=== PATIENT | female | born 1945 | race Caucasian/White ===

== ENCOUNTER → 2020-05-29 | Outpatient (REF) | payer MEDICARE, MEDICAID | LOC: M SFHCLERA 13:17 | PROVIDERS: ATTEND Nurse Practitioner Family | DX: N28.9 Disorder of kidney and ureter, unspecified (principal) ==

== ENCOUNTER → 2020-05-31 | Outpatient (CLI) | payer MEDICARE, MEDICAID ==
[2020-05-31 15:28] LABS: ALBUMIN 3.5 GM/DL (3.2-5.2); BLOOD UREA NITROGEN 14 MG/DL (7-18); CALCIUM LEVEL 8.7 MG/DL (8.8-10.2); CARBON DIOXIDE LEVEL 27 MEQ/L (21-32); CHLORIDE LEVEL 110 MEQ/L (98-107); CREATININE FOR GFR 0.88 MG/DL (0.55-1.30); GLOMERULAR FILTRATION RATE > 60.0 (>39); GLUCOSE, FASTING 98 MG/DL (70-100); PHOSPHORUS LEVEL 3.3 MG/DL (2.5-4.9); POTASSIUM SERUM 3.6 MEQ/L (3.5-5.1); SODIUM LEVEL 145 MEQ/L (136-145)
== END ==
LOC: M LAB 14:25
PROVIDERS: ATTEND Nurse Practitioner Family
DX: N28.9 Disorder of kidney and ureter, unspecified (principal)

== ENCOUNTER → 2021-01-30 | Outpatient (CLI) | payer MEDICARE, MEDICAID ==
[~2021-01-30] MED LIST: ASPI81TA26 PO; ATOR40TA75 PO; CARB25TA18 PO; ELIQ5TAB PO; FAMO20TA PO; FLON1SPR; GABA600T4 PO; KEPP1TAB PO; METO25TA4 PO; OMEP1CAP73 PO; VIMP200T PO; VITA-243 PO; VITA500T73 PO
== END ==
LOC: M LABSMTC 10:49
PROVIDERS: ATTEND Anesthesiology
DX: Z01.812 Encounter for preprocedural laboratory examination (principal); Z20.822 Contact with and (suspected) exposure to COVID-19

== ENCOUNTER 2021-02-04 09:56 | Day surgery (SDC) | payer MEDICARE, MEDICAID ==
[~2021-02-04] VITALS: Ht 144.8 cm; Wt 76.7 kg
[~2021-02-04 09:56] MED LIST changes: +NS 1,000 ML IV ONE
--- OUTSIDE RECORDS SUMMARY | 2021-02-04 10:03 | CCD ---
Author Author [facility] Organization [facility] Address Unknown Phone Unavailable Care Team Providers Care Campaign Assistant Name Role Phone Eri Fany Unavailable PROBLEMS Type Condition ICD9-CM Code [id number] Code Onset Dates Condition S tatus W/U Status Risk SNOMED Code Notes Problem Parkinson disease G20 Active confirmed 49 981010 Problem History of coronary artery stent placement Z95.5 Active confirmed 970617941 Problem Gastroesophageal reflux dise ase, unspecified whether esophagitis present K21.9 Active confirmed 619419663 Problem History of left knee replacement Z96.652 Active confirmed 548267093 Problem Insomnia, unspecified type G47.00 Active confirmed 644110092 Problem Dementia with behavioral disturbance, unspecifie d dementia type F03.91 Active confirmed 2291964016284 ALLERGIES Allergen (clinical drug ingredient) Drug/Non Drug Allergy do cumented on EMR Reaction Allergy Type Onset Date Status sulfamethoxazole / trimethoprim Bactrim([facility] Code:[address]-39) Unknown Drug Allergy Active Penicillin (For Allergies Use Only) Unknown Drug Allerg y Active ENCOUNTERS from 1945 to 2021-01-23 Encounter Location Date Provider Diagnosis [facility] [address] [facility] [phone] [place] [address] Jan, Fany Hwang Gastroesophageal reflux dise ase, unspecified whether esophagitis present K21.9 IMMUNIZATIONS Vaccine Route Administration Date Status Influenza 18 yrs & older Flublok IM Intramuscular Mar 05, 2020 Administered SOCIAL HISTORY Tobacco Use: Social History Observation Description Date Details (start date - stop date) Never Smoker Sex Assigned At : Social History Observation Description Sex Assigned At Unknown Audit Question Answer Notes Total Score: 0 Interpretation: Alcohol Education Drug and Alcohol Question Answer Notes Total Score: 0 Interpretation: No problems reported Tobacco Use: Question Answer Notes Are you a: never smoker REASON FOR REFERRAL No Information VITAL SIGNS No information MEDICATIONS Medication SIG (Take, Route, Frequency, Duration) Notes Start Da te End Date Status DULoxetine HCl 60 MG 1 capsule Orally Once a day for 30 Days Active Carbidopa-Levodopa 25-100 MG 1 tablet Orally three times daily for 90 days Active Vitamin B-1 500 MG 1 tab Orally once daily Active Fluticasone Propionate 50 MCG/ACT 1 spray in each nost ril Nasally Once a day for 30 day(s) Oct, Active Vitamin C 500 MG 1 cap Orally Daily Active Aspirin 81 81 MG 1 tablet Orally Once a day for 90 days Active Keppra 500 MG 3 tablets Orally every 12 hrs for 30 days Active Metoprolol Tartrate 25 MG 3 tablets Orally Twice a day for 30 days Active Atorvastatin Calcium 40 MG 1 tablet Orally Once a day for 30 Days Active Clindamycin HCl 150 MG 1 cap Orally every 8 hrs for 10 day(s) May, Not-Taking Vimpat 200 MG 1 tablet Orally Twice a day for 30 days Active Eliquis 5 MG 1 tab Orally Daily for 30 days Active Famotidine 20 MG 1 tablet as directed Orally Twice a day for 30 day(s) Oct, Active Gabapentin 600 MG 1 tablet Orally Once a day for 30 days Active Dextromethorphan-quiNIDine 20-10 MG 2 capsule Orally Daily for 30 Day s Active Zolpidem Tartrate 5 MG 1 tablet at bedtime Orally Once a day for 30 d ays Active PROCEDURES No Information RESULTS No Results REASON FOR VISIT Famotidine refill MEDICAL (GENERAL) HISTORY Type Description Date Medical History Hypertension Medical History non-epileptic and epileptic seizures Medical History dementia Medical History parkinsons Medical History heart palpitations Medical History stroke-2016 Surgical History cardiac stent Surgical History left knee replacement Surgical History right arm X 2 Surgical History X 3 Surgical History hysterectomy Hospitalization History surgeries Hospitalization History seizures 2017 Goals Section No Information Health Concerns No Information MEDICAL EQUIPMENT No Information MENTAL STATUS No Information FUNCTIONAL STATUS No Information ASSESSMENTS Encounter Date Diagnosis Assessment Notes Treatment Notes Treatm ent Clinical Notes Jan, Gastroesophageal reflux dise ase, unspecified whether esophagitis present (ICD-10 - K21.9) PLAN OF TREATMENT Medication Medication Name Sig Start Date Stop Date Keppra 500 MG 3 tablets Orally every 12 hrs for 30 days Gabapentin 600 MG 1 tablet Orally Once a day for 30 days Famotidine 20 MG 1 tablet as directed Orally Twice a day for 30 day(s) Oct, Fluticasone Propionate 50 MCG/ACT 1 spray in each nost ril Nasally Once a day for 30 day(s) Oct, Insurance Providers Payer Name Payer Address Payer Phone Insured Name Patient Relati onship to Insured Coverage Start Date Coverage End Date MEDICAID ab&jb properties and services[employer]er [address] [facility] [address] SURENDRA MOORE MEDICARE Part A and B [address] [facility] [address] SURENDRA MOORE self
--- OUTSIDE RECORDS SUMMARY | 2021-02-04 10:04 | CCD ---
Author Author [facility] Organization [facility] Address Unknown Phone Unavailable Care Team Providers Care Banquet Bartender Name Role Phone Eri Fany Unavailable PROBLEMS Type Condition ICD9-CM Code [id number] Code Onset Dates Condition S tatus W/U Status Risk SNOMED Code Notes Problem Parkinson disease G20 Active confirmed 49 801302 Problem History of coronary artery stent placement Z95.5 Active confirmed 676091075 Problem Gastroesophageal reflux dise ase, unspecified whether esophagitis present K21.9 Active confirmed 518059733 Problem History of left knee replacement Z96.652 Active confirmed 918858417 Problem Insomnia, unspecified type G47.00 Active confirmed 426310618 Problem Dementia with behavioral disturbance, unspecifie d dementia type F03.91 Active confirmed 1212710099849 ALLERGIES Allergen (clinical drug ingredient) Drug/Non Drug Allergy do cumented on EMR Reaction Allergy Type Onset Date Status sulfamethoxazole / trimethoprim Bactrim([facility] Code:[address]-70) Unknown Drug Allergy Active Penicillin (For Allergies Use Only) Unknown Drug Allerg y Active ENCOUNTERS from 1945 to 2021-01-21 Encounter Location Date Provider Diagnosis [facility] [address] [facility] [phone] [place] [address] Jan, Fany Hwang Gastroesophageal reflux dise ase, [...] three times daily for 90 days Active Eliquis 5 MG 1 tab Orally Daily for 30 days Active Fluticasone Propionate 50 MCG/ACT 1 spray in each nost ril Nasally Once a day for 30 day(s) Oct, Active Vitamin C 500 MG 1 cap Orally Daily Active Aspirin 81 81 MG 1 tablet Orally Once a day for 90 days Active Keppra 500 MG 3 tablets Orally every 12 hrs for 30 days Active Atorvastatin Calcium 40 MG 1 tablet Orally Once a day for 30 Days Active Vitamin B-1 500 MG 1 tab Orally once daily Active Famotidine 20 MG 1 tablet as directed Orally Twice a day for 30 day(s) Oct, Active Vimpat 200 MG 1 tablet Orally Twice a day for 30 days Active Dextromethorphan-quiNIDine 20-10 MG 2 capsule Orally Daily for 30 Day s Active Metoprolol Tartrate 25 MG 3 tablets Orally Twice a day for 30 days Active Gabapentin 600 MG 1 tablet Orally Once a day for 30 days Active Clindamycin HCl 150 MG 1 cap Orally every 8 hrs for 10 day(s) May, Not-Taking Zolpidem Tartrate 5 MG 1 tablet at bedtime Orally Once a day for 30 d ays Active PROCEDURES No Information RESULTS No Results REASON FOR VISIT Refill MEDICAL (GENERAL) HISTORY Type Description Date Medical [...] Coverage Start Date Coverage End Date MEDICAID MCA[employer]Meet[employer] [address] [facility] [address] SURENDRA MOORE MEDICARE Part A and B [address] [facility] [address] SURENDRA MOORE self
--- OUTSIDE RECORDS SUMMARY | 2021-02-04 10:04 | CCD ---
Author Author [facility] Organization [facility] Address Unknown Phone Unavailable Care Team Providers Care Validation Specialist Name Role Phone Perla Hwangell Unavailable PROBLEMS Type Condition ICD9-CM Code CLO02-HE Code Onset Dates Condition S tatus W/U Status Risk SNOMED Code Notes Problem Parkinson disease G20 Active confirmed 49 331941 Problem History of coronary artery stent placement Z95.5 Active confirmed 148723535 Problem Gastroesophageal reflux dise ase, unspecified whether esophagitis present K21.9 Active confirmed 478579918 Problem History of left knee replacement Z96.652 Active confirmed 814251233 Problem Insomnia, unspecified type G47.00 Active confirmed 404592951 Problem Dementia with behavioral disturbance, unspecifie d dementia type F03.91 Active confirmed 2636172067708 ALLERGIES Allergen (clinical drug ingredient) Drug/Non Drug Allergy do cumented on EMR Reaction Allergy Type Onset Date Status sulfamethoxazole / trimethoprim Bactrim([facility] Code:[address]-40) Unknown Drug Allergy Active Penicillin (For Allergies Use Only) Unknown Drug Allerg y Active ENCOUNTERS from 1945 to 2020-11-26 Encounter Location Date Provider Diagnosis [facility] [address] [facility] [phone] [place] [address] Nov, Fany Eri Seizures R56.9 IMMUNIZATIONS Vaccine Route Administration Date Status Influenza [...] tab Orally Daily for 30 days Active Aspirin 81 81 MG 1 tablet Orally Once a day for 90 days Active Famotidine 20 MG 1 tablet as directed Orally Twice a day for 30 day(s) Oct, Active Vitamin C 500 MG 1 cap Orally Daily Active Keppra 500 MG 3 tablets Orally [...] Information RESULTS No Results REASON FOR VISIT Keppra refill MEDICAL (GENERAL) HISTORY Type Description Date [...] Notes Treatment Notes Treatm ent Clinical Notes Nov, Seizures (ICD-10 - R56.9) PLAN OF TREATMENT Medication Medication Name Sig Start Date Stop Date Keppra 500 MG 3 tablets Orally every 12 hrs for 30 days Gabapentin 600 MG 1 tablet Orally Once a day for 30 days Fluticasone Propionate 50 MCG/ACT 1 spray in each nost ril Nasally Once a day for 30 day(s) Oct, Famotidine 20 MG 1 tablet as directed Orally Twice a day for 30 day(s) Oct, Insurance Providers Payer Name Payer Address Payer Phone Insured Name Patient Relati onship to Insured Coverage Start Date Coverage End Date MEDICARE Part A and B [address] [facility] [phone] SURENDRA MOORE MEDICAID [employer] [address] [facility] [address] SURENDRA MOORE self
--- OUTSIDE RECORDS SUMMARY | 2021-02-04 10:04 | CCD | Continuity of Care Document ---
Author Author Estela Ortiz Roz Organization Unknown Address Unknown Phone [phone] Care Team Providers Care Manganese Heater Name Role Phone Donn [facility]INE [facility] [phone] Social History Type Date Description Comments Sex Unknown Results Test Acquired Date Facility Test Result H/L Range Note Laboratory test finding 01/17/[address] [address] [phone] CBC W/Automated Diff (SEE NOTE) 1 Basic Metabolic Panel 01/17/[address] [address] [phone] Basic Metabolic Pane (SEE NOTE) 2 Sodium 141 mEq/L 134 - 153 Potassium 4.5 mEq/L 3.6 - 5.0 Chloride 111 mEq/L High 98 - 107 Co2 19 mEq/L Low 22 - 30 Glucose 126 mg/dL High 70 - 99 BUN 8 mg/dL 7 - 21 Creatinine 0.7 mg/dL 0.7 - 1.5 BUN/Creat 11 8 - 27 Calcium 8.6 mg/dL 8.4 - 10.2 Anion Gap 11.0 mmol/L 8.0 - 16.0 Age 75 yrs Afr Amer GFR >60 Non-Aa GFR >60 mL/min 3 CBC W/Automated Diff 01/16/[address] [address] [phone] CBC W/Automated Diff (SEE NOTE) 4 WBC 5.4 10^3/uL 4.2 - 11.0 RBC 4.20 10^6/uL 4.20 - 5.40 Hemoglobin 13.7 g/dL 12.0 - 16.0 Hematocrit 41.3 % 37.0 - 47.0 MCV 98.3 fL 81.0 - 101 MCH 32.6 pg 27.0 - 34.0 MCHC 33.2 g/dL 31.0 - 36.0 RDW 12.5 % 11.5 - 14.5 Platelets 144 10^3/uL Low 150 - 450 MPV 11.7 fL High 7.4 - 10.4 Neut 63.8 % 37.0 - 80.0 Lymph 23.3 % Low 25.0 - 40.0 [place] 7.8 % 3.0 - 8.0 Eos 4.3 % 0.0 - 7.0 Baso 0.6 % 0.0 - 2.5 %Ig 0.2 % High 0.0 - 0.0 %NRBC 0.0 % 0.0 - 0.0 #Neut 3.42 10^3/uL 2.00 - 6.90 #Lymph 1.25 10^3/uL 0.60 - 3.40 #[place] 0.42 10^3/uL 0.00 - 0.90 #Eos 0.23 10^3/uL 0.00 - 0.70 #Baso 0.03 10^3/uL 0.00 - 0.20 #Ig 0.01 10^3/uL 0.00 - 0.10 #NRBC 0.00 10^3/uL 0.00 - 0.00 Manual Diff NOT INDICATED RBC Morph NOT INDICATED Comprehensive Metabolic Panel 01/16/2021 [facility] [address] [place] [address] [phone] Comprehensive Metabo (SEE NOTE) 5 Sodium 142 mEq/L 134 - 153 Potassium 3.9 mEq/L 3.6 - 5.0 Chloride 110 mEq/L High 98 - 107 Co2 19 mEq/L Low 22 - 30 Glucose 108 mg/dL High 70 - 99 BUN 11 mg/dL 7 - 21 Creatinine 0.7 mg/dL 0.7 - 1.5 BUN/Creat 16 8 - 27 Total Protein 5.9 g/dL Low 6.3 - 8.2 Albumin 4.0 g/dL 3.9 - 5.0 Globulin 1.9 GM/DL Low 2.4 - 3.2 A/G Ratio 2.1 High 0.8 - 2.0 Calcium 9.0 mg/dL 8.4 - 10.2 Total Bili <0.7 mg/dL 0.2 - 1.3 Alkaline Phos 90 U/L 38 - 126 Sgot/Ast 11 U/L 5 - 40 SGPT/Alt <5 U/L Low 7 - 56 Anion Gap 13.0 mmol/L 8.0 - 16.0 Age 75 yrs Non-Aa GFR >60 mL/min Afr Amer GFR >60 6 1 COMPLETE BLOOD COUNT [WB] WBC 4.4___ 10^3/uL (L=4.2 H=11.0 )] [RB] RBC 3.97__ L 10^6/uL (L=4.20 H=5.40 )] [HG] HEMOGLOBIN 12.9___ g/dL (L=12.0 H=16.0 )] [HC] HEMATOCRIT 39.5___ % (L=37.0 H=47.0 )] [MV] MCV 99.5___ fL (L=81.0 H=101 )] [MH] MCH 32.5___ pg (L=27.0 H=34.0 )] [CC] MCHC 32.7___ g/dL (L=31.0 H=36.0 )] [RD] RDW 12.3___ % (L=11.5 H=14.5 )] [PL] PLATELETS 95 L 10^3/uL (L=150 H=450 )] [MP] MPV 12.2___ H fL (L=7.4 H=10.4 )] [N%] NEUT 56.1___ % (L=37.0 H=80.0 )] [L%] LYMPH 29.5___ % (L=25.0 H=40.0 )] [M%] MONO 8.2___ H % (L=3.0 H=8.0 )] [E%] EOS 5.5___ % (L=0.0 H=7.0 )] [B%] BASO 0.5___ % (L=0.0 H=2.5 )] [I%] %IG 0.2___ H % (L=0.0 H=0.0 )] [n%] %NRBC 0.0___ % (L=0.0 H=0.0 )] [N#] #NEUT 2.46__ 10^3/uL (L=2.00 H=6.90 )] [L#] #LYMPH 1.29__ 10^3/uL (L=0.60 H=3.40 )] [M#] #MONO 0.36__ 10^3/uL (L=0.00 H=0.90 )] [E#] #EOS 0.24__ 10^3/uL (L=0.00 H=0.70 )] [B#] #BASO 0.02__ 10^3/uL (L=0.00 H=0.20 )] [I#] #IG 0.01__ 10^3/uL (L=0.00 H=0.10 )] [n#] #NRBC 0.00__ 10^3/uL (L=0.00 H=0.00 )] { MANUAL DIFF ___SEE_BELOW [ SEGS 55 % (L=37 H=80 )] [ BAND % (L=0 H=5 )] [ %LYMPH 36 % (L=25 H=40 )] [ %MONO 7 % (L=3 H=8 )] [ %EOS 2 % (L=0 H=7 )] [ %BASO % (L=0 H=2 )] [ METAMYELOCYTE % ] [ MYELOCYTE % ] [ PROMYELOCYTE % ] [ BLASTS % ] [ PAUL LYM % ] [ NRBC % ] { RBC MORPH __NOT_INDICATED___ 2 BASIC METABOLIC PANEL 3 Male GFR Interprentation 20-49 yrs >60 mL/min Normal 50-59 yrs >56 mL/min Normal 60-69 yrs >49 mL/min Normal 70-79yrs >42 mL/min Normal 80 and above >35 mL/min Normal Female GFR Interpretation 20-39 yrs >60 mL/min Normal 40-49 yrs >58 mL/min Normal 50-59 yrs >51 mL/min Normal 60-69 yrs >45 mL/min Normal 70-79 yrs >39 mL/min Normal 80 and above >32 mL/min Normal 4 COMPLETE BLOOD COUNT 5 COMPREHENSIVE METABOLIC PANE L 6 Male GFR Interprentation 20-49 yrs >60 mL/min Normal 50-59 yrs >56 mL/min Normal 60-69 yrs >49 mL/min Normal 70-79yrs >42 mL/min Normal 80 and above >35 mL/min Normal Female GFR Interpretation 20-39 yrs >60 mL/min Normal 40-49 yrs >58 mL/min Normal 50-59 yrs >51 mL/min Normal 60-69 yrs >45 mL/min Normal 70-79 yrs >39 mL/min Normal 80 and above >32 mL/min Normal Procedures Date Code Description Status 01/15/2021 83476 Echocardiogram, Complete Complet ed Assessments Date Code Description Provider 01/15/2021 I34.0 Nonrheumatic mitral (valve) insu fficiency [facility]
--- OUTSIDE RECORDS SUMMARY | 2021-02-04 10:04 | CCD | Continuity of Care Document ---
Author Author Estela Ortiz Roz Organization Unknown Address Unknown Phone [phone] Care Team Providers Care College Dean Name Role Phone Donn [facility] [phone] Social History Type Date Description Comments Sex Unknown Results Test Acquired Date Facility Test Result H/L Range Note Laboratory test finding 01/17/[address] [address] [phone] CBC W/Automated Diff (SEE NOTE) 1 Basic Metabolic Panel 01/17/[address] [address] [phone] Basic Metabolic Pane (SEE NOTE) 2 Sodium [...] >60 mL/min 3 CBC W/Automated Diff 01/16/[address] [address] [phone] CBC W/Automated Diff (SEE NOTE) 4 WBC [...] Lymph 23.3 % Low 25.0 - 40.0 [place] 7.8 % 3.0 - 8.0 Eos 4.3 % 0.0 - 7.0 Baso 0.6 % 0.0 - 2.5 %Ig 0.2 % High 0.0 - 0.0 %NRBC 0.0 % 0.0 - 0.0 #Neut 3.42 10^3/uL 2.00 - 6.90 #Lymph 1.25 10^3/uL 0.60 - 3.40 #[place] 0.42 10^3/uL 0.00 - 0.90 #Eos 0.23 10^3/uL 0.00 - 0.70 #Baso 0.03 10^3/uL 0.00 - 0.20 #Ig 0.01 10^3/uL 0.00 - 0.10 #NRBC 0.00 10^3/uL 0.00 - 0.00 Manual Diff NOT INDICATED RBC Morph NOT INDICATED Comprehensive Metabolic Panel 01/16/2021 [facility] [address] [place] [address] [phone] Comprehensive Metabo (SEE NOTE) 5 Sodium 142 [...] Normal Procedures Date Code Description Status 01/15/2021 [address] Echocardiogram, Complete Complet ed Assessments Date Code Description Provider 01/15/2021 I34.0 Nonrheumatic mitral (valve) insu fficiency [facility]
--- OUTSIDE RECORDS SUMMARY | 2021-02-04 10:04 | CCD ---
Author Author [facility] Organization [facility] Address Unknown Phone Unavailable Care Team Providers Care Clinical Engineer Name Role Phone Eri, Fany Unavailable PROBLEMS Type Condition ICD9-CM Code YYM49-LU Code Onset Dates Condition S tatus W/U Status Risk SNOMED Code Notes Problem Parkinson disease G20 Active confirmed 49 855174 Problem History of coronary artery stent placement Z95.5 Active confirmed 406597608 Problem Gastroesophageal reflux dise ase, unspecified whether esophagitis present K21.9 Active confirmed 729350212 Problem History of left knee replacement Z96.652 Active confirmed 199589328 Problem Insomnia, unspecified type G47.00 Active confirmed 302791711 Problem Dementia with behavioral disturbance, unspecifie d dementia type F03.91 Active confirmed 4025308492838 ALLERGIES Allergen (clinical drug ingredient) Drug/Non Drug Allergy do cumented on EMR Reaction Allergy Type Onset Date Status sulfamethoxazole / trimethoprim Bactrim([facility] Code:[address]-16) Unknown Drug Allergy Active Penicillin (For Allergies Use Only) Unknown Drug Allerg y Active ENCOUNTERS from 1945 to 2020-11-12 Encounter Location Date Provider Diagnosis [facility] [address] [facility] [phone] [place] [address] Oct, Fany Hwang IMMUNIZATIONS Vaccine Route Administration Date Status Influenza [...] a day for 30 day(s) Oct, Active Metoprolol Tartrate 25 MG 3 tablets Orally Twice a day for 30 days Active Atorvastatin Calcium 40 MG 1 tablet Orally Once a day for 30 Days Active Clindamycin HCl 150 MG 1 cap Orally every 8 hrs for 10 day(s) May, Not-Taking Keppra 500 MG 3 tablets Orally every 12 hrs for 30 days Active Eliquis 5 MG 1 tab Orally Daily for 30 days Active Vimpat 200 MG 1 tablet Orally [...] Information RESULTS No Results REASON FOR VISIT Gabapentin refill MEDICAL (GENERAL) HISTORY Type Description Date [...] No Information FUNCTIONAL STATUS No Information ASSESSMENTS No Information PLAN OF TREATMENT Medication Medication Name Sig Start Date Stop Date Famotidine 20 MG 1 tablet as directed Orally Twice a day for 30 day(s) Oct, Gabapentin 600 MG 1 tablet Orally Once a day for 30 days Keppra 500 MG 3 tablets Orally every 12 hrs for 30 days Fluticasone Propionate 50 MCG/ACT 1 spray in each nost ril Nasally Once a day for 30 day(s) Oct, Insurance Providers Payer Name Payer Address Payer Phone Insured Name Patient Relati onship to Insured Coverage Start Date Coverage End Date MEDICAID [employer] [address] [facility] [address] SURENDRA MOORE MEDICARE Part A and B [address] [facility] [address] SURENDRA MOORE self
--- OUTSIDE RECORDS SUMMARY | 2021-02-04 10:04 | CCD | Continuity of Care Document ---
Author Author Estela HORTA Organization Unknown Address [address] [place] [address] Phone [phone] Care Team Providers Care Registered Nurse Cardiac Name Role Phone Fany Hwang M.D. AUTM [phone] Problems Active Problems Provider Date Seizure Juan Mejia M.D. Onset: 12/12/2020 Dissociative convulsions Juan Mejia M.D. Onset: 2020 Parkinson's disease Juan Mejia M.D. Onset: 12/12/2020 Ischemic stroke Juan Mejia M.D. Onset: 12/12/2020 Dementia Juan Mejia M.D. Onset: 12/12/2020 Social History Type Date Description Comments Sex Unknown Tobacco Use Start: Unknown End: Unknown Patient is a former smoker Allergies, Adverse Reactions, Alerts Active Allergies Criticality Reaction | Severity Comments Date ALL Cillin's Unable to assess criticality 12/12/2020 Medications Active Medications SIG Qnty Indications Ordering Provide r Date Diazepam 5mg Tablets take 1 tab 30-60 minutes prior to mri. POURER [id number] 1chavo fung M.D. 12/26/2020 Keppra 500mg Tablets T sukhjinder 3 tabs PO bid 180chavo Mejia M.D. 12/12/2020 Vimpat 200mg Tablets 1 tab by mouth bid. 60tamoises Mejia M.D. 12/12/2020 Carbidopa-Levodopa 25-100mg Tablet s take 1.5 tablet three times a day 5 hrs apart. 135tamoises Mejia M.D. 12/12/2020 Immunizations Description No Information Available Vital Signs Date Vital Result Comment 12/12/2020 8:43am Respiratory Rate 12 /min Height 57 inches 4'9" Weight 172.00 lb BMI (Body Mass Index) 37.2 kg/m2 [place] Body Weight 100 lb Results Description No Information Available Procedures Date Code Description Status 12/27/2020 64682 MRI Brain W/O Contrast Completed 12/27/2020 21919 MRI Brain W/O Contrast Completed 12/27/2020 23203 Magnetic Resonance Angiography N mary W/O Contrast Materials Completed 12/27/2020 20373 Magnetic Resonance Angiography N mary W/O Contrast Materials Completed 12/27/2020 63938 Magnetic Resonance Angiogtaphy H ead W/O Contrast Material(S) Completed 12/27/2020 73115 Magnetic Resonance Angiogtaphy H ead W/O Contrast Material(S) Completed 12/12/2020 79012 Office/Outpatient New High MDM 6 0-74 Minutes Completed Medical Devices Description No Information Available Encounters Type Date Location Provider Dx Diagnosis Office Visit 12/12/2020 8:00a Main office - [place] Juan fugn M.D. 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 12/27/2020 I63.9 Cerebral infarction, unspecified MRI 12/27/2020 R42 Dizziness and giddiness Kris Regan M.D. 12/27/2020 R42 Dizziness and giddiness MRI 12/12/2020 I63.9 Cerebral infarction, unspecified Juan Mejia M.D. 12/12/2020 R42 Dizziness and giddiness Juan perdomo M.D. 12/12/2020 G20 Parkinson's disease Juan fung M.D. 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 12/12/2020 R26.81 Unsteadiness on feet Juan oneal M.D. Plan of Treatment Future Appointment(s):* 03/25/2021 2:15 pm - Juan Mejia M.D. at [facility] * 01/15/2021 8:15 am - EEG at [facility] * 01/31/2021 10:15 am - Ans/VS at [facility] Functional Status Description No Information Available Mental Status Description No Information Available Referrals Description No Information Available
--- OUTSIDE RECORDS SUMMARY | 2021-02-04 10:04 | CCD | Continuity of Care Document ---
Author Estela Meneses M.D. Organization Unknown Address [address] [place] [address] Phone [phone] Care Team Providers Care Monorail Charger Operator Name Role Phone Fany Hwang M.D. AUTM [phone] Problems Active Problems Provider Date Seizure Juan [...] SIG Qnty Indications Ordering Provide r Date Keppra 500mg Tablets T sukhjinder 3 tabs PO bid 180tamoises Mejia M.D. 12/12/2020 Vimpat 200mg Tablets 1 tab by mouth bid. 60tamoises Mejia M.D. 12/12/2020 Carbidopa-Levodopa 25-100mg Tablet s take 1.5 tablet three times a day 5 hrs apart. 135chavo Mejia M.D. 12/12/2020 Immunizations Description No Information Available Vital Signs Date Vital Result Comment 12/12/2020 8:43am Respiratory Rate 12 /min Height 57 inches 4'9" Weight 172.00 lb BMI (Body Mass Index) 37.2 kg/m2 [place] Body Weight 100 lb Results Description No Information Available Procedures Description No Information Available Medical Devices Description No Information Available Encounters Description No Information Available Assessments Date Code Description Provider 12/12/2020 I63.9 Cerebral infarction, unspecified Juan Mejia M.D. 12/12/2020 R42 Dizziness and giddiness Juan perdomo M.D. 12/12/2020 G20 Parkinson's disease Juan fung M.D. 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 12/12/2020 R26.81 Unsteadiness on feet Juan oneal M.D. Plan of Treatment No Information Available Functional Status Description No Information Available Mental Status Description No Information Available Referrals Description No Information Available
--- OUTSIDE RECORDS SUMMARY | 2021-02-04 10:04 | CCD | Continuity of Care Document ---
Author Author Estela OCONNOR PA-C Organization Unknown Address [address] [place] [address], [address] [place] [address] Phone [phone] Care Team Providers Care Sample Finisher Name Role Phone Fany Hwang M.D. AUTM [phone] Ny Reddy AUTM [phone] Problems Active Problems Provider Date Essential hypertension CARLA Rodríguez Onset: Social History Type Date Description Comments Sex Unknown ETOH Use Denies alcohol use Tobacco Use Start: Unknown Non Smoker Allergies, Adverse Reactions, Alerts Active Allergies Criticality Reaction | Severity Comments Date Penicillins Unable to assess criticality 12/26/2020 Medications Active Medications SIG Qnty Indications Ordering Provide r Date Omeprazole 20mg Capsules DR take one capsule by mouth twice a day 60caps K21.9 Satish Ann MD Aspirin Adult Low Dose 81mg Tablet s DR 1 tab by mouth daily Unknown Atorvastatin Calcium 40mg Tablets 1 by mouth every day Unknown Carbidopa-Levodopa 25-100mg Tablet s 1 1/2 tab tid Unknown Eliquis 5mg Tablets 1 tab by mouth daily Unknown Gabapentin 600mg Tablets 1 tab by mouth daily Unknown Keppra 500mg Tablets 3 tab s twice daily Unknown Metoprolol Succinate ER 25mg Tablets ER 24HR 3 tabs twice daily Unknown 0 Vitamin B-12 500mcg Tablets one tablet by mouth daily. Unknown Vitamin C 500mg Tablets Daily Unknown Famotidine 20mg Tablets take 1 tab by mouth twice daily Unknown Vimpat 200mg Tablets bid Unknown Immunizations Description No Information Available Vital Signs Date Vital Result Comment 12/26/2020 2:05pm BP Systolic 134 mmHg BP Diastolic 82 mmHg Height 57 inches 4'9" Weight 172.00 lb BMI (Body Mass Index) 37.2 kg/m2 [place] Body Weight 100 lb Weight 78.019 kg BSA (Body Surface Area) 1.69 m2 Results Description No Information Available Procedures Date Code Description Status 12/26/2020 27514 Office/Outpatient New Moderate M DM 45-59 Minutes Completed Medical Devices Description No Information Available Encounters Type Date Location Provider Dx Diagnosis Office Visit 12/26/2020 2:00p [facility] ctice CARLA Rodríguez K21.9 Gastro-esophageal reflux dis ease without esophagitis R10.13 Epigastric pain Assessments Date Code Description Provider 12/26/2020 K21.9 Gastro-esophageal reflux disease without esophagitis CARLA Rodríguez 12/26/2020 R10.13 Epigastric pain CARLA Brock Plan of Treatment Future Appointment(s):* 02/12/2021 2:05 pm - David Choudhury M.D. at [facility] * 02/04/2021 11:55 am - David Choudhury M.D. at [facility] 12/26/2020 - CARLA Rodríguez* K21.9 Gastro-esophageal reflux disease without esophagitis * R10.13 Epigastric pain * * New Medication:* Omeprazole 20 mg * New Orders:* Endoscopy, Ordered: 12/26/20 * Comments:* Offerd a colonoscopy to the patient, as she has never had one. She has declined to have the colonoscopy completed. She verbalized understanding of the risks associated with not having the colonoscopy completed, including the risk of missed abnormalities. She states that she is going to speak with her PCP about possible stool testing for colo-rectal cancer screening. Will arrange for upper endoscopy. Reviewed risks and benefits of the procedure, as well as other options, with the patient. Prep for this procedure was discussed with patient. A letter will be sent to [facility] requesting permission for her to hold Eliquis prior to the procedure. Patient verbalized understanding of all of the above and is in agreement to proceed. Patient will seek medical attention for any acute changes. Will monitor. * Follow up:* As scheduled, sooner if needed. Functional Status Description No Information Available Mental Status Description No Information Available Referrals Refer to Reason for Referral Status Appt Date David Choudhury M.D. GERD Scheduled 12/26 [facility]-[address], [place] [address] [phone]
--- OUTSIDE RECORDS SUMMARY | 2021-02-04 10:04 | CCD ---
Author Author [facility] Organization [facility] Address Unknown Phone Unavailable Care Team Providers Care Astrobiologist Name Role Phone Eri Fany Unavailable PROBLEMS Type Condition ICD9-CM Code [id number] Code Onset Dates Condition S tatus W/U Status Risk SNOMED Code Notes Problem Parkinson disease G20 Active confirmed 49 864063 Problem History of coronary artery stent placement Z95.5 Active confirmed 461359386 Problem Gastroesophageal reflux dise ase, unspecified whether esophagitis present K21.9 Active confirmed 985128485 Problem History of left knee replacement Z96.652 Active confirmed 012800122 Problem Insomnia, unspecified type G47.00 Active confirmed 328724230 Problem Dementia with behavioral disturbance, unspecifie d dementia type F03.91 Active confirmed [id number] ALLERGIES Allergen (clinical drug ingredient) Drug/Non Drug Allergy do cumented on EMR Reaction Allergy Type Onset Date Status sulfamethoxazole / trimethoprim Bactrim([facility] Code:[address]-54) Unknown Drug Allergy Active Penicillin (For Allergies Use Only) Unknown Drug Allerg y Active ENCOUNTERS from 1945 to 2020-12-26 Encounter Location Date Provider Diagnosis [facility] [address] [facility] [phone] [place] [address] Dec, Fany Hwang Gastroesophageal reflux dise ase, unspecified [...] Notes Start Da te End Date Status Famotidine 20 MG 1 tablet as directed Orally Twice a day for 30 day(s) Oct, Active DULoxetine HCl 60 MG 1 capsule Orally [...] a day for 30 d ays Active Eliquis 5 MG 1 tab Orally Daily for 30 days Active Vimpat 200 MG 1 tablet Orally Twice a day for 30 days Active Gabapentin 600 MG 1 tablet Orally Once a day for 30 days Active Dextromethorphan-quiNIDine 20-10 MG 2 capsule Orally Daily for 30 Day s Active Carbidopa-Levodopa 25-100 MG 1 tablet Orally three times daily for 90 days Active PROCEDURES No Information RESULTS No Results [...] Notes Treatment Notes Treatm ent Clinical Notes Dec, Gastroesophageal reflux dise ase, unspecified whether esophagitis [...] Coverage Start Date Coverage End Date MEDICAID [employer] [address] [facility] [id number] SURENDRA MOORE MEDICARE Part A and B [address] [facility] [address] SURENDRA MOORE self
--- OUTSIDE RECORDS SUMMARY | 2021-02-04 10:04 | CCD | Continuity of Care Document ---
Author Author Estela ZAVALA M.D. Organization Unknown Address [address] [place] [address] Phone [phone] Care Team Providers Care Research And Development Technician Name Role Phone Fany Hwang M.D. AUTM [phone] Problems Active Problems Provider Date Seizure Juan Zavala M.D. Onset: 12/12/2020 Dissociative convulsions Juan Zavala M.D. Onset: 2020 Parkinson's disease Juan Zavala M.D. Onset: 12/12/2020 Ischemic stroke Juan Zavala M.D. Onset: 12/12/2020 Dementia Juan Zavala M.D. Onset: 12/12/2020 Social History Type Date Description Comments Sex Unknown Tobacco Use Start: Unknown End: Unknown Patient is a former smoker Allergies, Adverse Reactions, Alerts Active Allergies Criticality Reaction | Severity Comments Date ALL Cillin's Unable to assess criticality 12/12/2020 Medications Active Medications SIG Qnty Indications Ordering Provide r Date Keppra 500mg Tablets T sukhjinder 3 tabs PO bid 180tamoises Zavala M.D. 12/12/2020 Vimpat 200mg Tablets 1 tab by mouth bid. 60tabs Juan Zavala M.D. 12/12/2020 Carbidopa-Levodopa 25-100mg Tablet s take 1.5 tablet three times a day 5 hrs apart. 135tamoises Zavala M.D. 12/12/2020 Immunizations Description No Information Available Vital Signs Date Vital Result Comment 12/12/2020 8:43am Respiratory Rate 12 /min Height 57 inches 4'9" Weight 172.00 lb BMI (Body Mass Index) 37.2 kg/m2 [place] Body Weight 100 lb Results Description No Information Available Procedures Date Code Description Status 12/12/2020 57597 Office/Outpatient New High MDM 6 0-74 Minutes Completed Medical Devices Description No Information Available Encounters Type Date Location Provider Dx Diagnosis Office Visit 12/12/2020 8:00a [facility] Juan fung M.D. I63.9 Cerebral infarction, unspecified R42 Dizziness and giddiness G20 Parkinson's disease F01.51 Vascular dementia with behav ioral disturbance F44.5 Conversion disorder with sei zures or convulsions R26.81 Unsteadiness on feet Assessments Date Code Description Provider 12/12/2020 I63.9 Cerebral infarction, unspecified Juan Zavala M.D. 12/12/2020 R42 Dizziness and giddiness Juan perdomo M.D. 12/12/2020 G20 Parkinson's disease Juan fung M.D. 12/12/2020 F01.51 Vascular dementia with behaviora l disturbance Juan Zavala M.D. 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 12/12/2020 R26.81 Unsteadiness on feet Juan oneal M.D. Plan of Treatment Future Appointment(s):* 03/25/2021 2:15 pm - Juan Zavala M.D. at [facility] * 01/15/2021 8:15 am - EEG at [facility] * 01/31/2021 10:15 am - Ans/VS at [facility] Functional Status Description No Information Available Mental Status Description No Information Available Referrals Description No Information Available
--- OUTSIDE RECORDS SUMMARY | 2021-02-04 10:04 | CCD | Continuity of Care Document ---
Author Author Estela HORTA Organization Unknown Address [address] [place] [address] Phone [phone] Care Team Providers Care Web Architect Name Role Phone Fany Hwang M.D. AUTM [phone] Problems Active Problems Provider Date Seizure Juan [...] 1 tab 30-60 minutes prior to mri. CREDIT ADMINISTRATOR [id number] 1chavo fung M.D. 12/26/2020 Keppra 500mg Tablets [...] lb BMI (Body Mass Index) 37.2 kg/m2 [place] Body Weight 100 lb Results Description No Information Available Procedures Date Code Description Status 12/12/2020 25494 Office/Outpatient New High MDM 6 0-74 Minutes Completed Medical Devices Description No Information Available Encounters Type Date Location Provider Dx Diagnosis Office Visit 12/12/2020 8:00a [facility] Juan fung M.D. I63.9 Cerebral infarction, [...] 2:15 pm - Juan Mejia M.D. at [facility] * 01/15/2021 8:15 am - EEG at [facility] * 01/31/2021 10:15 am - Ans/VS at [facility] Functional Status Description No Information Available Mental Status Description No Information Available Referrals Description No Information Available
--- OUTSIDE RECORDS SUMMARY | 2021-02-04 10:04 | CCD | Continuity of Care Document ---
Author Author Estela OCONNOR PA-C Organization Unknown Address [address] [place] [address], [address] [place] [address] Phone [phone] Care Team Providers Care Deposit Refund Clerk Name Role Phone Fany Hwang M.D. AUTM [phone] Problems Active Problems Provider Date Essential hypertension [...] mouth twice a day 60caps K21.9 Satish nAn MD Aspirin Adult Low Dose 81mg Tablet [...] lb BMI (Body Mass Index) 37.2 kg/m2 [place] Body Weight 100 lb Weight 78.019 kg BSA (Body Surface Area) 1.69 m2 Results Description No Information Available Procedures Description No Information Available Medical Devices Description No Information Available Encounters Description No Information Available Assessments Date Code Description Provider 12/26/2020 K21.9 Gastro-esophageal reflux disease without esophagitis CARLA Rodríguez 12/26/2020 R10.13 Epigastric pain CARLA Brock Plan of Treatment 12/26/2020 - CARLA Rodríguez* K21.9 Gastro-esophageal reflux disease without esophagitis * R10.13 Epigastric pain * * New Medication:* Omeprazole 20 mg * New Orders:* Endoscopy, Ordered: 12/26/20 * Comments:* Will arrange for upper endoscopy. Reviewed risks and benefits of the procedure, as well as other options, with the patient. Prep for this procedure was discussed with patient. A letter will be sent to [facility] requesting permission for her to hold Eliquis prior to the procedure. Patient verbalized understanding of all of the above and is in agreement to proceed. Patient will seek medical attention for any acute changes. Will monitor. //Offered colo but declined. She will talk with PCP about stool testing. * Follow up:* As scheduled, sooner if needed. Functional Status Description No Information Available Mental Status Description No Information Available Referrals Refer to Reason for Referral Status Appt Date David Choudhury M.D. GERD Scheduled 12/26 [facility] [address], [address] [place] [address] [phone]
--- OUTSIDE RECORDS SUMMARY | 2021-02-04 10:04 | CCD ---
Author Author [facility] Organization [facility] Address Unknown Phone Unavailable Care Team Providers Care Information Systems Project Manager Name Role Phone Eri, Fany Unavailable PROBLEMS Type Condition ICD9-CM Code [id number] Code Onset Dates Condition S tatus W/U Status Risk SNOMED Code Notes Problem Parkinson disease G20 Active confirmed 49 247933 Problem History of coronary artery stent placement Z95.5 Active confirmed 377168893 Problem Gastroesophageal reflux dise ase, unspecified whether esophagitis present K21.9 Active confirmed 548115966 Problem History of left knee replacement Z96.652 Active confirmed 451112866 Problem Insomnia, unspecified type G47.00 Active confirmed 417902539 Problem Dementia with behavioral disturbance, unspecifie d dementia type F03.91 Active confirmed 8782322364611 ALLERGIES Allergen (clinical drug ingredient) Drug/Non Drug Allergy do cumented on EMR Reaction Allergy Type Onset Date Status sulfamethoxazole / trimethoprim Bactrim([facility] Code:[address]-68) Unknown Drug Allergy Active Penicillin (For Allergies Use Only) Unknown Drug Allerg y Active ENCOUNTERS from 1945 to 2021-01-14 Encounter Location Date Provider Diagnosis [address] [phone] [place] [address] Dec, Fany Hwang IMMUNIZATIONS Vaccine Route Administration Date [...] Information RESULTS No Results REASON FOR VISIT dizziness x 1 week MEDICAL (GENERAL) HISTORY Type Description Date Medical [...] Part A and B [address] [facility] [address] SURENDRA MOORE MEDICAID [employer] [address] [facility] [address] SURENDRA MOORE self
--- OUTSIDE RECORDS SUMMARY | 2021-02-04 10:04 | CCD | Continuity of Care Document ---
Author Author Estela SHINE M.D. P. C. Organization Unknown Address [address] [place] [address] Phone [phone] Care Team Providers Care Parts Finisher Name Role Phone HESHAM DIAMOND M[facility] [phone] Social History Type Date Description Comments Sex Unknown Procedures Date Code Description Status 01/15/2021 31441 Echocardiogram, Complete Complet ed Assessments Date Code Description Provider 01/15/2021 I34.0 Nonrheumatic mitral (valve) insu fficiency Hesham iDamond M.D.,P.C.
--- OUTSIDE RECORDS SUMMARY | 2021-02-04 10:05 | CCD ---
Author Author [facility] Organization [facility] Address Unknown Phone Unavailable Care Team Providers Care Tool Builder Name Role Phone NO, PCP Unavailable Unavailable Charlebois, A Gianna RPA C Unavailable Unavailable Charlebois, A Gianna RPA C Unavailable Unavailable Charlebois, A Gianna RPA C Unavailable Unavailable Charlebois, A Gianna RPA C Unavailable Unavailable Charlebois, A Gianna RPA C Unavailable Unavailable Charlebois, A Gianna RPA C Unavailable Unavailable Charlebois, A Gianna RPA C Unavailable Unavailable Charlebois, A Gianna RPA C Unavailable Unavailable Charlebois, A Gianna RPA C Unavailable Unavailable Charlebois, A Gianna RPA C Unavailable Unavailable Charlebois, A Gianna RPA C Unavailable Unavailable Charlebois, A Gianna RPA C Unavailable Unavailable Charlebois, A Gianna RPA C Unavailable Unavailable Charlebois, A Gianna RPA C Unavailable Unavailable Charlebois, A Gianna RPA C Unavailable Unavailable Charlebois, A Gianna RPA C Unavailable Unavailable Charlebois, A Gianna RPA C Unavailable Unavailable Charlebois, A Gianna RPA C Unavailable Unavailable Charlebois, A Gianna RPA C Unavailable Unavailable Charlebois, A Gianna RPA C Unavailable Unavailable Charlebois, A Gianna RPA C Unavailable Unavailable Charlebois, A Gianna RPA C Unavailable Unavailable Charlebois, A Gianna RPA C Unavailable Unavailable Charlebois, A Gianna RPA C Unavailable Unavailable Charlebois, A Gianna RPA C Unavailable Unavailable Charlebois, A Gianna RPA C Unavailable Unavailable Charlebois, A Gianna RPA C Unavailable Unavailable Charlebois, A Gianna RPA C Unavailable Unavailable Charlebois, A Gianna RPA C Unavailable Unavailable Charlebois, A Gianna RPA C Unavailable Unavailable Charlebois, A Gianna RPA C Unavailable Unavailable Charlebois, A Gianna RPA C Unavailable Unavailable Charlebois, A Gianna RPA C Unavailable Unavailable Dada Loyola MD Unavailable Unavailable Dada Loyola MD Unavailable Unavailable Dada Loyola MD Unavailable Unavailable Dada Loyola MD Unavailable Unavailable Dada Loyola MD Unavailable Unavailable Dada Loyola MD Unavailable Unavailable Rosy Hwang MD Unavailable Unavailable Rosy Hwang MD Unavailable Unavailable Rosy Hwang MD Unavailable Unavailable Rosy Hwang MD Unavailable Unavailable Rosy Hwang MD Unavailable Unavailable Rosy Hwang MD Unavailable Unavailable Rosy Hwang MD Unavailable Unavailable Rosy Hwang MD Unavailable Unavailable Rosy Hwang MD Unavailable Unavailable Rosy Hwang MD Unavailable Unavailable Rosy Hwang MD Unavailable Unavailable Rosy Hwang MD Unavailable Unavailable Rosy Hwang MD Unavailable Unavailable Rosy Hwang MD Unavailable Unavailable Rosy Hwang MD Unavailable Unavailable Rosy Hwang MD Unavailable Unavailable Rosy Hwang MD Unavailable Unavailable Rosy Hwang MD Unavailable Unavailable Rosy Hwang MD Unavailable Unavailable Rosy Hwang MD Unavailable Unavailable Rosy Hwang MD Unavailable Unavailable Rosy Hwang MD Unavailable Unavailable Rosy Hwang MD Unavailable Unavailable Rosy Hwang MD Unavailable Unavailable Rosy Hwang MD Unavailable Unavailable Rosy Hwang MD Unavailable Unavailable Rosy Hwang MD Unavailable Unavailable Rosy Hwang MD Unavailable Unavailable Rosy Hwang MD Unavailable Unavailable Rosy Hwang MD Unavailable Unavailable Rosy Hwang MD Unavailable Unavailable Rosy Hwang MD Unavailable Unavailable Rosy Hwang MD Unavailable Unavailable Rosy Hwang MD Unavailable Unavailable Rosy Hwang MD Unavailable Unavailable Rosy Hwang MD Unavailable Unavailable Rosy Hwang MD Unavailable Unavailable Rosy Hwang MD Unavailable Unavailable Rosy Hwang MD Unavailable Unavailable Rosy Hwang MD Unavailable Unavailable Rosy Hwang MD Unavailable Unavailable Rosy Hwang MD Unavailable Unavailable Rosy Hwang MD Unavailable Unavailable Rosy Hwang MD Unavailable Unavailable Rosy Hwang MD Unavailable Unavailable Rosy Hwang MD Unavailable Unavailable Rosy Hwang MD Unavailable Unavailable Rosy Hwang MD Unavailable Unavailable Rosy Hwang MD Unavailable Unavailable Rosy Hwang MD Unavailable Unavailable Rosy Hwang MD Unavailable Unavailable Rosy Hwang MD Unavailable Unavailable Rosy Hwang MD Unavailable Unavailable Rosy Hwang MD Unavailable Unavailable Rosy Hwang MD Unavailable Unavailable Rosy Hwang MD Unavailable Unavailable Rosy Hwang MD Unavailable Unavailable Rosy Hwang MD Unavailable Unavailable Rosy Hwang MD Unavailable Unavailable Rosy Hwang MD Unavailable Unavailable Rosy Hwang MD Unavailable Unavailable Rosy Hwang MD Unavailable Unavailable Rosy Hwang MD Unavailable Unavailable Rosy Hwang MD Unavailable Unavailable Rosy Hwang MD Unavailable Unavailable Rosy Hwang MD Unavailable Unavailable Rosy Hwang MD Unavailable Unavailable Rosy Hwang MD Unavailable Unavailable [place], V YUMIKO PA-C Unavailable Unavailable [place], V YUMIKO PA-C Unavailable Unavailable Maureen, V YUMIKO PA-C Unavailable Unavailable [place], V YUMIKO PA-C Unavailable Unavailable [place], V YUMIKO PA-C Unavailable Unavailable Maureen, V YUMIKO PA-C Unavailable Unavailable [place], V YUMIKO PA-C Unavailable Unavailable Maureen, V YUMIKO PA-C Unavailable Unavailable [place], V YUMIKO PA-C Unavailable Unavailable Maureen, V YUMIKO PA-C Unavailable Unavailable Maureen, V YUMIKO PA-C Unavailable Unavailable Maureen, V YUMIKO PA-C Unavailable Unavailable [place], V YUMIKO PA-C Unavailable Unavailable [place], V YUMIKO PA-C Unavailable Unavailable Alex Mejia MD Unavailable Unavailable Alex Mejia MD Unavailable Unavailable Alex Mejia MD Unavailable Unavailable Alex Mejia MD Unavailable Unavailable Alex Mejia MD Unavailable Unavailable Alex Mejia MD Unavailable Unavailable Alex Mejia MD Unavailable Unavailable Alex Mejia MD Unavailable Unavailable Alex Mejia MD Unavailable Unavailable Alex Mejia MD Unavailable Unavailable Alex Mejia MD Unavailable Unavailable Alex Mejia MD Unavailable Unavailable Alex Mejia MD Unavailable Unavailable Alex Mejia MD Unavailable Unavailable Alex Mejia MD Unavailable Unavailable Alex Mejia MD Unavailable Unavailable Alex Mejia MD Unavailable Unavailable Alex Mejia MD Unavailable Unavailable Alex Mejia MD Unavailable Unavailable Alex Mejia MD Unavailable Unavailable Alex Mejia MD Unavailable Unavailable Alex Mejia MD Unavailable Unavailable Alex Mejia MD Unavailable Unavailable Alex Mejia MD Unavailable Unavailable Alex Mejia MD Unavailable Unavailable Alex Mejia MD Unavailable Unavailable Alex Mejia MD Unavailable Unavailable Alex Mejia MD Unavailable Unavailable Alex Mejia MD Unavailable Unavailable Alex Mejia MD Unavailable Unavailable Alex Mejia MD Unavailable Unavailable Alex Mejia MD Unavailable Unavailable Alex Mejia MD Unavailable Unavailable Alex Mejia MD Unavailable Unavailable Alex Mejia MD Unavailable Unavailable Alex Mejia MD Unavailable Unavailable Alex Mejia MD Unavailable Unavailable Alex Mejia MD Unavailable Unavailable Alex Mejia MD Unavailable Unavailable Alex Mejia MD Unavailable Unavailable Alex Mejia MD Unavailable Unavailable Alex Mejia MD Unavailable Unavailable Alex Mejia MD Unavailable Unavailable Alex Mejia MD Unavailable Unavailable Alex Mejia MD Unavailable Unavailable Alex Mejia MD Unavailable Unavailable Alex Mejia MD Unavailable Unavailable Alex Mejia MD Unavailable Unavailable Alex Mejia MD Unavailable Unavailable Alex Mejia MD Unavailable Unavailable Alex Mejia MD Unavailable Unavailable Alex Mejia MD Unavailable Unavailable Alex Mejia MD Unavailable Unavailable Alex Mejia MD Unavailable Unavailable Alex Mejia MD Unavailable Unavailable Alex Mejia MD Unavailable Unavailable Alex Mejia MD Unavailable Unavailable Alex Mejia MD Unavailable Unavailable Alex Mejia MD Unavailable Unavailable Alex Mejia MD Unavailable Unavailable Alex Mejia MD Unavailable Unavailable Alex Mejia MD Unavailable Unavailable Alex Mejia MD Unavailable Unavailable Alex Mejia MD Unavailable Unavailable Alex Mejia MD Unavailable Unavailable Alex Mejia MD Unavailable Unavailable Alex Mejia MD Unavailable Unavailable Alex Mejia MD Unavailable Unavailable Alex Mejia MD Unavailable Unavailable Alex Mejia MD Unavailable Unavailable Alex Mejia MD Unavailable Unavailable Alex Mejai MD Unavailable Unavailable Alex Mejia MD Unavailable Unavailable Alex Mejia MD Unavailable Unavailable Alex Mejia MD Unavailable Unavailable Alex Mejia MD Unavailable Unavailable Alex Mejia MD Unavailable Unavailable Alex Mejia MD Unavailable Unavailable Alex Mejia MD Unavailable Unavailable Boo, ANGEL ALICE SENIOR ADVISORY Unavailable Unavailabl e Boo, ANGEL ALICE SENIOR ADVISORY Unavailable Unavailabl e Boo, ANGEL ALICE SENIOR ADVISORY Unavailable Unavailabl e Boo, ANGEL ALICE SENIOR ADVISORY Unavailable Unavailabl e [place], ANGEL ALICE SENIOR ADVISORY Unavailable Unavailabl e [place], ANGEL ALICE SENIOR ADVISORY Unavailable Unavailabl e Boo, ANGEL ALICE SENIOR ADVISORY Unavailable Unavailabl e [place], ANGEL ALICE SENIOR ADVISORY Unavailable Unavailabl e Boo, ANGEL ALICE SENIOR ADVISORY Unavailable Unavailabl e Boo, ANGEL ALICE SENIOR ADVISORY Unavailable Unavailabl e [place], ANGEL ALICE SENIOR ADVISORY Unavailable Unavailabl e Boo, ANGEL ALICE SENIOR ADVISORY Unavailable Unavailabl e [place], ANGEL ALICE SENIOR ADVISORY Unavailable Unavailabl e Boo, ANGEL ALICE SENIOR ADVISORY Unavailable Unavailabl e Boo, ANGEL ALICE SENIOR ADVISORY Unavailable Unavailabl e [place], ANGEL ALICE SENIOR ADVISORY Unavailable Unavailabl e [place], ANGEL ALICE SENIOR ADVISORY Unavailable Unavailabl e [place], ANGEL ALICE SENIOR ADVISORY Unavailable Unavailalexis [facility] Unavailable Unavailable Spring Chaves MD Unavailable Unavailable Spring Chaves MD Unavailable Unavailable Spring Chaves MD Unavailable Unavailable Spring Chaves MD Unavailable Unavailable Spring Chaves MD Unavailable Unavailable Spring Chaves MD Unavailable Unavailable Spring Chaves MD Unavailable Unavailable Spring Chaves MD Unavailable Unavailable Spring Chaves MD Unavailable Unavailable Spring Chaves MD Unavailable Unavailable Spring Chaves MD Unavailable Unavailable Spring Chaves MD Unavailable Unavailable Spring Chaves MD Unavailable Unavailable Spring Chaves MD Unavailable Unavailable Spring Chaves MD Unavailable Unavailable Spring Chaves MD Unavailable Unavailable Spring Chaves MD Unavailable Unavailable Spring Chaves MD Unavailable Unavailable Spring Chaves MD Unavailable Unavailable Spring Chaves MD Unavailable Unavailable Spring Chaves MD Unavailable Unavailable Spring Chaves MD Unavailable Unavailable Spring Chaves MD Unavailable Unavailable Spring Chaves MD Unavailable Unavailable Spring Chaves MD Unavailable Unavailable Spring Chaves MD Unavailable Unavailable Spring Chaves MD Unavailable Unavailable Spring Chaves MD Unavailable Unavailable Spring Chaves MD Unavailable Unavailable Spring Chaves MD Unavailable Unavailable Spring Chaves MD Unavailable Unavailable Spring Chaves MD Unavailable Unavailable Spring Chaves MD Unavailable Unavailable Spring Chaves MD Unavailable Unavailable Spring Chaves MD Unavailable Unavailable Spring Chaves MD Unavailable Unavailable Spring Chaves MD Unavailable Unavailable Slezka, Vojtech MD Unavailable Unavailable Slezka, Vojtech MD Unavailable Unavailable Slezka, Vojtech MD Unavailable Unavailable Slezka, Vojtech MD Unavailable Unavailable Slezka, Vojtech MD Unavailable Unavailable Slezka, Vojtech MD Unavailable Unavailable Slezka, Vojtech MD Unavailable Unavailable Slezka, Vojtech MD Unavailable Unavailable Slezka, Vojtech MD Unavailable Unavailable Slezka, Vojtech MD Unavailable Unavailable Slezka, Vojtech MD Unavailable Unavailable Slezka, Vojtech MD Unavailable Unavailable Slezka, Vojtech MD Unavailable Unavailable Slezka, Vojtech MD Unavailable Unavailable Slezka, Vojtech MD Unavailable Unavailable Slezka, Vojtech MD Unavailable Unavailable Slezka, Vojtech MD Unavailable Unavailable Slezka, Vojtech MD Unavailable Unavailable Slezka, Vojtech MD Unavailable Unavailable Slezka, Vojtech MD Unavailable Unavailable Slezka, Vojtech MD Unavailable Unavailable Re-disclosure Warning The records that you are about to access may contain information from federally-assisted alcohol or drug abuse programs. If such information is present, then the following federally mandated warning applies: This information has been disclosed to you from records protected by federal confidentiality rules (42 CFR part 2). The federal rules prohibit you from making any further disclosure of this information unless further disclosure is expressly permitted by the written consent of the person to whom it pertains or as otherwise permitted by 42 CFR part 2. A general authorization for the release of medical or other information is NOT sufficient for this purpose. The Federal rules restrict any use of the information to criminally investigate or prosecute any alcohol or drug abuse patient.The records that you are about to access may contain highly sensitive health information, the redisclosure of which is protected by Article 27-F of the [facility] Public Health law. If you continue you may have access to information: Regarding HIV / AIDS; Provided by facilities licensed or operated by the [facility] Office of Mental Health; or Provided by the [facility] Office for People With Developmental Disabilities. If such information is present, then the following [facility] mandated warning applies: This information has been disclosed to you from confidential records which are protected by state law. State law prohibits you from making any further disclosure of this information without the specific written consent of the person to whom it pertains, or as otherwise permitted by law. Any unauthorized further disclosure in violation of state law may result in a fine or mcc sentence or both. A general authorization for the release of medical or other information is NOT sufficient authorization for further disc losure. Allergies and Adverse Reactions Type Description Substance Reaction Status Data Source(s ) No Known Environmental Allergies No Known Environmental Al lergies [facility] No Known Food Allergies No Known Food Allergies [facility] Propensity to adverse reactions PENICILLIN PENICILLIN [facility] Propensity to adverse reactions SULFAMETHOXAZOLE-TRIMETHOPRI M Sulfamethoxazole-Trimethoprim Active [facility] Propensity to adverse reactions PENICILLINS Penicillins Ac tive [facility] Encounters Encounter Providers Location Date Indications Data Source(s ) Outpatient Attender: Spring Chaves MDAttender: NAVNEET [email or web address] 01/29/2021 12:00:00 AM EDT - 01/29/2021 07:58:10 AM EDT [facility] Unknown [address] [facility] [address] 01/22/2021 12:00:00 AM EDT eCW1 ([facility]) [place] [address] [facility] [address] 01/20/2021 12:00:00 AM EDT eCW1 ([facility]) Inpatient Attender: ALICE Haddad FNPAttender: Dada Loyola MDConsultant: CLINIC GUTHRIEConsultant: Fany Hwang MDConsultant: PCP NO 01/16/2021 11:38:00 AM EDT - 01/17/2021 12:09:00 PM EDT [facility] Patient discharged. Outpatient Attender: ALICE SANABRIA 01/14/2021 01:40:00 PM EDT - 01/16/2021 01:16:00 PM EDT [facility] Unknown [address] [facility] [address] 01/14/2021 12:00:00 AM EDT eCW1 ([facility]) Outpatient Attender: Gianna Javier/Saturnino/Choco rodriguez/Marissa 12/26/2020 02:00:00 PM EDT [facility] ([facility] [place]) [place] [address] [facility] [address] 12/25/2020 12:00:00 AM EDT eCW1 ([facility]) Outpatient Attender: Juan Mejia MD Main office - [facility] 12/12/2020 08:00:00 AM EDT [facility] ([facility] [place]) [place] [address] [facility] [address] 11/25/2020 12:00:00 AM EDT eCW1 ([facility]) [place] [address] [facility] [address] 11/11/2020 12:00:00 AM EDT eCW1 ([facility]) Outpatient Attender: YUMIKO [email or web address] 12:00:00 AM EDT - 11/04/2020 01:51:16 PM EDT [facility] Unknown [address] [facility] [address] 10/30/2020 12:00:00 AM EDT eCW1 ([facility]) [place] [address] [facility] [address] 10/30/2020 12:00:00 AM EDT eCW1 ([facility]) [place] [address] [facility] [address] 10/18/2020 12:00:00 AM EDT eCW1 ([facility]) [place] [address] [address] 07/29/2020 12:00:00 AM EDT eCW1 ([facility]) [place] [address] [facility] [address] 07/01/2020 12:00:00 AM EDT eCW1 ([facility]) [place] [address] [facility] [address] 06/07/2020 12:00:00 AM EST eCW1 ([facility]) [place] [address] [facility] [address] 05/31/2020 12:00:00 AM EST eCW1 ([facility]) [place] [address] [facility] [address] 05/30/2020 12:00:00 AM EST eCW1 ([facility]) Out[place] [address] [facility] [address] 05/29/2020 12:00:00 AM EST eCW1 ([facility]) [place] [address] [address] 05/27/2020 12:00:00 AM EST eCW1 ([facility]) Outpatient Attender: Spring Chaves MDReferrer: Perla Hwang MD [email or web address] 05/09/2020 12:00:00 AM EST - 05/09/2020 02:27:26 PM EST [facility] Unknown [address] [facility] [address] 03/06/2020 12:00:00 AM EST eCW1 ([facility]) Out[place] [address] [facility] [address] 03/05/2020 12:00:00 AM EST eCW1 ([facility]) Immunizations Vaccine Date Status Description Data Source(s) influenza, recombinant, quadrIvalent,injectable, prese rvative free 03/05/2020 04:21:00 PM EST completed eCW1 ([facility]) influenza, recombinant, quadrIvalent,injectable, prese rvative free 03/05/2020 04:21:00 PM EST completed eCW1 ([facility]) influenza, recombinant, quadrIvalent,injectable, prese rvative free 03/05/2020 04:21:00 PM EST completed eCW1 ([facility]) influenza, recombinant, quadrIvalent,injectable, prese rvative free 03/05/2020 04:21:00 PM EST completed eCW1 ([facility]) influenza, recombinant, quadrIvalent,injectable, prese rvative free 03/05/2020 04:21:00 PM EST completed eCW1 ([facility]) influenza, recombinant, quadrIvalent,injectable, prese rvative free 03/05/2020 04:21:00 PM EST completed eCW1 ([facility]) influenza, recombinant, quadrIvalent,injectable, prese rvative free 03/05/2020 04:21:00 PM EST completed eCW1 ([facility]) influenza, recombinant, quadrIvalent,injectable, prese rvative free 03/05/2020 04:21:00 PM EST completed eCW1 ([facility]) influenza, recombinant, quadrIvalent,injectable, prese rvative free 03/05/2020 04:21:00 PM EST completed eCW1 ([facility]) influenza, recombinant, quadrIvalent,injectable, prese rvative free 03/05/2020 04:21:00 PM EST completed eCW1 ([facility]) influenza, recombinant, quadrIvalent,injectable, prese rvative free 03/05/2020 04:21:00 PM EST completed eCW1 ([facility]) influenza, recombinant, quadrIvalent,injectable, prese rvative free 03/05/2020 04:21:00 PM EST completed eCW1 ([facility]) influenza, recombinant, quadrIvalent,injectable, prese rvative free 03/05/2020 04:21:00 PM EST completed eCW1 ([facility]) influenza, recombinant, quadrIvalent,injectable, prese rvative free 03/05/2020 04:21:00 PM EST completed eCW1 ([facility]) influenza, recombinant, quadrIvalent,injectable, prese rvative free 03/05/2020 04:21:00 PM EST completed eCW1 ([facility]) influenza, recombinant, quadrIvalent,injectable, prese rvative free 03/05/2020 04:21:00 PM EST completed eCW1 ([facility]) influenza, recombinant, quadrIvalent,injectable, prese rvative free 03/05/2020 04:21:00 PM EST completed eCW1 ([facility]) influenza, recombinant, quadrIvalent,injectable, prese rvative free 03/05/2020 04:21:00 PM EST completed eCW1 ([facility]) Medications Medication Brand Name Start Date Product Form Dose Route Admi nistrative Instructions Pharmacy Instructions Status Indications Reaction Description Data Source(s) Diazepam 5 MG Oral Tablet Diazepam 12/26/2020 12:00:00 AM EDT active MEDENT ([facility], ) Omeprazole 20 MG Delayed Release Oral Capsule Omeprazole 12/26/2020 12:00:00 AM EDT ORAL active MEDENT ([facility], ) Levetiracetam 500 MG Oral Tablet [Keppra] Keppra 12/12/2020 12:00 :00 AM EDT active MEDENT ([facility], ) Carbidopa 25 MG / Levodopa 100 MG Oral Tablet Carbidopa-Levo dopa 12/12/2020 12:00:00 AM EDT active M EDENT ([facility], ) lacosamide 200 MG Oral Tablet [Vimpat] Vimpat 12/12/2020 12:00:00 AM EDT ORAL active MEDENT ([facility], ) apixaban 5 MG Oral Tablet [Eliquis] Eliquis 5 MG TABS tablet Eliquis 5 MG TABS tablet 11/04/2020 12:00:00 AM EDT 5 mg Oral active Take 1 tablet (5 mg total) by mouth daily [facility] Fluticasone Propionate 50 MCG/ACT Fluticasone Propionate 50 MCG/ACT 10/30/2020 12:00:00 AM EDT 1.0 {spray_in_each_nostril} acti ve Fluticasone Propionate 50 MCG/ACT eCW1 ([facility]) Famotidine 20 MG Oral Tablet Famotidine 20 MG 10/30/2020 12:00:00 AM E DT active Famotidine 20 MG eCW1 ([facility]) Famotidine 20 MG Oral Tablet Famotidine 20 MG 10/30/2020 12:00:00 AM E DT active Famotidine 20 MG eCW1 ([facility]) Famotidine 20 MG Oral Tablet Famotidine 20 MG 10/30/2020 12:00:00 AM E DT active Famotidine 20 MG eCW1 ([facility]) Fluticasone Propionate 50 MCG/ACT Fluticasone Propionate 50 MCG/ACT 10/30/2020 12:00:00 AM EDT 1.0 {spray_in_each_nostril} acti ve Fluticasone Propionate 50 MCG/ACT eCW1 ([facility]) Fluticasone Propionate 50 MCG/ACT Fluticasone Propionate 50 MCG/ACT 10/30/2020 12:00:00 AM EDT 1.0 {spray_in_each_nostril} acti ve Fluticasone Propionate 50 MCG/ACT eCW1 ([facility]) Fluticasone Propionate 50 MCG/ACT Fluticasone Propionate 50 MCG/ACT 10/30/2020 12:00:00 AM EDT 1.0 {spray_in_each_nostril} acti ve Fluticasone Propionate 50 MCG/ACT eCW1 ([facility]) Fluticasone Propionate 50 MCG/ACT Fluticasone Propionate 50 MCG/ACT 10/30/2020 12:00:00 AM EDT 1.0 {spray_in_each_nostril} acti ve Fluticasone Propionate 50 MCG/ACT eCW1 ([facility]) Famotidine 20 MG Oral Tablet Famotidine 20 MG 10/30/2020 12:00:00 AM E DT active Famotidine 20 MG eCW1 ([facility]) Fluticasone Propionate 50 MCG/ACT Fluticasone Propionate 50 MCG/ACT 10/30/2020 12:00:00 AM EDT 1.0 {spray_in_each_nostril} acti ve Fluticasone Propionate 50 MCG/ACT eCW1 ([facility]) fluticasone (FLONASE) 50 MCG/ACT nasal spray 0138-6234-32 10/30/2020 12:00:00 AM EDT active SPRAY 1 SPRAY INT O EACH NOSTRIL EVERY DAY [facility] Famotidine 20 MG Oral Tablet Famotidine 20 MG 10/30/2020 12:00:00 AM E DT active Famotidine 20 MG eCW1 ([facility]) Famotidine 20 MG Oral Tablet Famotidine 20 MG 10/30/2020 12:00:00 AM E DT active Famotidine 20 MG eCW1 ([facility]) Famotidine 20 MG Oral Tablet Famotidine 20 MG 10/30/2020 12:00:00 AM E DT active Famotidine 20 MG eCW1 ([facility]) Famotidine 20 MG Oral Tablet Famotidine 20 MG 10/30/2020 12:00:00 AM E DT active Famotidine 20 MG eCW1 ([facility]) Fluticasone Propionate 50 MCG/ACT Fluticasone Propionate 50 MCG/ACT 10/30/2020 12:00:00 AM EDT 1.0 {spray_in_each_nostril} acti ve Fluticasone Propionate 50 MCG/ACT eCW1 ([facility]) Fluticasone Propionate 50 MCG/ACT Fluticasone Propionate 50 MCG/ACT 10/30/2020 12:00:00 AM EDT 1.0 {spray_in_each_nostril} acti ve Fluticasone Propionate 50 MCG/ACT eCW1 ([facility]) Clindamycin 150 MG Oral Capsule Clindamycin HCl 150 MG Clind amycin HCl 150 MG 05/31/2020 12:00:00 AM EST active Clindamycin HCl 150 MG eCW1 ([facility]) Clindamycin 150 MG Oral Capsule Clindamycin HCl 150 MG Clind amycin HCl 150 MG 05/31/2020 12:00:00 AM EST active Clindamycin HCl 150 MG eCW1 ([facility]) Clindamycin 150 MG Oral Capsule Clindamycin HCl 150 MG Clind amycin HCl 150 MG 05/31/2020 12:00:00 AM EST suspended Clindamycin HCl 150 MG eCW1 ([facility]) Clindamycin 150 MG Oral Capsule Clindamycin HCl 150 MG Clind amycin HCl 150 MG 05/31/2020 12:00:00 AM EST suspended Clindamycin HCl 150 MG eCW1 ([facility]) Clindamycin 150 MG Oral Capsule Clindamycin HCl 150 MG Clind amycin HCl 150 MG 05/31/2020 12:00:00 AM EST suspended Clindamycin HCl 150 MG eCW1 ([facility]) Clindamycin 150 MG Oral Capsule Clindamycin HCl 150 MG Clind amycin HCl 150 MG 05/31/2020 12:00:00 AM EST suspended Clindamycin HCl 150 MG eCW1 ([facility]) Clindamycin 150 MG Oral Capsule Clindamycin HCl 150 MG Clind amycin HCl 150 MG 05/31/2020 12:00:00 AM EST active Clindamycin HCl 150 MG eCW1 ([facility]) Clindamycin 150 MG Oral Capsule Clindamycin HCl 150 MG Clind amycin HCl 150 MG 05/31/2020 12:00:00 AM EST suspended Clindamycin HCl 150 MG eCW1 ([facility]) Clindamycin 150 MG Oral Capsule Clindamycin HCl 150 MG Clind amycin HCl 150 MG 05/31/2020 12:00:00 AM EST suspended Clindamycin HCl 150 MG eCW1 ([facility]) Clindamycin 150 MG Oral Capsule Clindamycin HCl 150 MG Clind amycin HCl 150 MG 05/31/2020 12:00:00 AM EST suspended Clindamycin HCl 150 MG eCW1 ([facility]) Clindamycin 150 MG Oral Capsule Clindamycin HCl 150 MG Clind amycin HCl 150 MG 05/31/2020 12:00:00 AM EST active Clindamycin HCl 150 MG eCW1 ([facility]) Clindamycin 150 MG Oral Capsule Clindamycin HCl 150 MG Clind amycin HCl 150 MG 05/31/2020 12:00:00 AM EST active Clindamycin HCl 150 MG eCW1 ([facility]) Clindamycin 150 MG Oral Capsule Clindamycin HCl 150 MG Clind amycin HCl 150 MG 05/31/2020 12:00:00 AM EST suspended Clindamycin HCl 150 MG eCW1 ([facility]) Clindamycin 150 MG Oral Capsule Clindamycin HCl 150 MG Clind amycin HCl 150 MG 05/31/2020 12:00:00 AM EST active Clindamycin HCl 150 MG eCW1 ([facility]) Clindamycin 150 MG Oral Capsule Clindamycin HCl 150 MG Clind amycin HCl 150 MG 05/31/2020 12:00:00 AM EST active Clindamycin HCl 150 MG eCW1 ([facility]) Levetiracetam 500 MG Oral Tablet levETIRAcetam (KEPPRA ) 500 MG tablet levETIRAcetam (KEPPRA) 500 MG tablet 04/27/2020 12:00:00 AM EST active TAKE 3 TABLETS BY MOUTH EVERY 12 HOURS [facility] gabapentin 600 MG Oral Tablet gabapentin (NEURONTIN) 6 00 MG tablet gabapentin (NEURONTIN) 600 MG tablet 04/21/2020 12:00:00 AM EST 600 mg Oral active Take 600 mg by mouth daily [facility] Zolpidem tartrate 5 MG Oral Tablet zolpidem (AMBIEN) 5 MG tablet zolpidem (AMBIEN) 5 MG tablet 03/05/2020 12:00:00 AM EST 5 mg Oral active Take 5 mg by mouth [facility] lacosamide 200 MG Oral Tablet [Vimpat] VIMPAT 200 MG TABS MPAT 200 MG TABS 03/05/2020 12:00:00 AM EST 1 {tbl} Oral active Take 1 tablet by mouth 2 (two) times a day [facility] Aspirin 81 MG Delayed Release Oral Tablet ASPIRIN LOW DOSE 81 MG EC tablet ASPIRIN LOW DOSE 81 MG EC tablet 03/05/2020 12:00:00 AM EST 81 mg Oral active Take 81 mg by mouth daily [facility] duloxetine 60 MG Delayed Release Oral Ca psule DULoxetine (CYMBALTA) 60 MG capsule DULoxetine (CYMBALTA) 60 MG capsule 03/05/2020 12:00:00 AM EST Oral active Take by mouth daily [facility] Metoprolol Tartrate 25 MG Oral Tablet me toprolol tartrate (LOPRESSOR) 25 MG tablet metoprolol tartrate (LOPRESSOR) 25 MG tablet 03/05/2020 12:0 0:00 AM EST 75 mg Oral active Take 75 mg by mo uth 2 (two) times a day [facility] atorvastatin 40 MG Oral Tablet atorvastatin (LIPITOR) 40 MG tablet atorvastatin (LIPITOR) 40 MG tablet 03/05/2020 12:00:00 AM EST 40 mg Oral active Take 40 mg by mouth daily [facility] apixaban 5 MG Oral Tablet [Eliquis] ELIQUIS 5 MG TABS tablet ELIQUIS 5 MG TABS tablet 03/05/2020 12:00:00 AM EST 5 mg Oral aborted Take 5 mg by mouth daily [facility] pantoprazole 40 MG Delayed Release Oral Tablet pantoprazole (PROTONIX) 40 MG tablet pantoprazole (PROTONIX) 40 MG tablet 03/05/2020 12:00:00 AM EST 40 mg Oral aborted Take 40 mg by mouth daily [facility] Dextromethorphan Hydrobromide 20 MG / Qu inidine Sulfate 10 MG Oral Capsule Dextromethorphan-quiNIDine (NUEDEXTA) 20-10 MG CAPS Dextromethorphan-quiNIDine (NUEDEXTA) 20-10 MG CAPS Oral aborted Take by mouth 2 cap a day [facility] Insurance Providers Payer name Policy type / Coverage type Policy ID Covered democrat ID Covered democrat's relationship to damon Policy Damon Plan Information MEDICARE [id number] Dori [id number] MEDICARE [id number] xxxxxxxxxxx [id number] MEDICAID [id number] xxxxxxxx [id number] MEDICAID [id number] Dori [id number] MEDICARE PART A -I/P [id number] 18 [id number] MEDICAID -O/P [id number] 18 [id number] MEDICARE PART A -O/P [id number] 18 [id number] MEDICAID -O/P EMERGENCY ROOM [id number] 18 [id number] [facility] MEDICAID [id number] SP [id number] N [place]ED[place] [id number] SP [id number] MEDICARE [id number] SP [id number] [id number] MEDICAID -O [id number] 18 [id number] MEDICARE PART A -O [id number] 18 [id number] Problems, Conditions, and Diagnoses Code Display Name Description Problem Type Effective Dates Data Source(s) Z01.810 Encounter for preprocedural cardiovascul ar examination Encounter for preprocedural cardiovascul Diagnosis 01/29/2021 07:00:25 AM EDT [facility] E78.00 Pure hypercholesterolemia, unspecified P ure hypercholesterolemia, unspecified Diagnosis 01/29/2021 07:00:25 AM EDT [facility] I48.0 Paroxysmal atrial fibrillation Paroxysmal atrial fibri llation Diagnosis 01/29/2021 07:00:25 AM EDT [facility] I10 Essential (primary) hypertension Essential (primary) h ypertension Diagnosis 01/29/2021 07:00:25 AM EDT [facility] 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 Atherosclerotic heart disease of mechoopda Diagnosis 01/29/2021 07:00:25 AM EDT [facility] R2689 Other abnormalities of gait and mobility Other abnormalities of gait and mobility Diagnosis 01/16/2021 11:38:00 AM EDT [facility] G20 Parkinson's disease Parkinson's disease Diagnosis 0 01/16/2021 11:38:00 AM EDT [facility] G2581 Restless legs syndrome Restless legs syndrome Diagnosi s 01/16/2021 11:38:00 AM EDT [facility] R42 Dizziness and giddiness Dizziness and giddiness Diagno sis 01/16/2021 11:38:00 AM EDT [facility] A83147 Personal history of nicotine dependence Personal history of nicotine dependence Diagnosis 01/14/2021 01:40:00 PM EDT [facility] R569 Unspecified convulsions Unspecified convulsions Diagno sis 01/14/2021 01:40:00 PM EDT [facility] K219 Gastro-esophageal reflux disease without esophagitis Gastro-esophageal reflux disease without esophagitis Diagnosis 01/14/2021 01:40:00 PM ED T [facility] I2510 Atherosclerotic heart diseas e of mechoopda coronary artery without angina pectoris Atherosclerotic heart disease of mechoopda coronary artery without angina pectoris Diagnosis 01/14/2021 01:40:00 PM EDT [facility] Z955 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 of coronary angioplasty implant and graft Diagnosis 01/14/2021 01:40:00 PM EDT [facility] G309 Alzheimer's disease, unspecified Alzheimer's dis ease, unspecified Diagnosis 01/14/2021 01:40:00 PM EDT [facility] F0390 Unspecified dementia without behavioral disturbance Unspecified dementia without behavioral disturbance Diagnosis 01/14/2021 01:40:00 PM EDT [facility] Z8673 Personal history of transien t ischemic attack (TIA), and cerebral infarction without residual deficits Personal history of transient ischemic attack (TIA), and cerebral infarction without residual deficits Diagnosis 01/14/2021 01:40:00 PM EDT [facility] I10 Essential (primary) hypertension Essential (primary) h ypertension Diagnosis 01/14/2021 01:40:00 PM EDT [facility] K5730 Diverticulosis of large inte wu without perforation or abscess without bleeding Diverticulosis of large intestine withou t perforation or abscess without bleeding Diagnosis 01/14/2021 01:40:00 PM EDT [facility] Z1152 ENCOUNTER FOR SCREENING FOR COVID-19 ENCOUNTER F OR SCREENING FOR COVID-19 Diagnosis 01/14/2021 01:40:00 PM EDT [facility] I639 Cerebral infarction, unspecified Cerebral infarc tion, unspecified Diagnosis 01/14/2021 01:40:00 PM EDT [facility] I4891 Unspecified atrial fibrillation Unspecified atrial fib rillation Diagnosis 01/14/2021 01:40:00 PM EDT [facility] [id number] Essential hypertension Essential hypertension Problem 12/26/2020 12:00:00 AM EDT [facility] ([facility]) [id number] Dementia Dementia Problem 12/12/2020 12:00:00 AM ED T MED[facility] ([facility]) [id number] Ischemic stroke Ischemic stroke Problem 12/12/2020 12:0 0:00 AM EDT [facility] ([facility]) [id number] Parkinson's disease Parkinson's disease Problem 0 12/12/2020 12:00:00 AM EDT [facility] ([facility]) [id number] Dissociative convulsions Dissociative convulsions Prob shay 12/12/2020 12:00:00 AM EDT [facility] ([facility] ) 06535790 Seizure Seizure Problem 12/12/2020 12:00:00 AM ED T MEDVIC ([facility] ) I48.0 Paroxysmal atrial fibrillation Paroxysmal atrial fibri llation 91019875 05/09/2020 12:00:00 AM EST [facility] E78.00 Hypercholesterolemia Hypercholesterolemia 60112821 05/09/2020 12:00:00 AM [facility] I10 Essential hypertension Essential hypertension 55742984 05/09/2020 12:00:00 AM [facility] I25.119 Coronary artery disease invo lving mechoopda coronary artery of mechoopda heart with angina pectoris Coronary artery disease involving mechoopda coronary artery of mechoopda heart with angina pectoris 66598459 05/04/2020 12:00:00 AM [facility] F03.91 [id number] Dementia with behavi oral disturbance, unspecified dementia type Problem 03/05/2020 12:00:00 AM EST eCW1 ([facility]) G47.00 Insomnia Insomnia, unspecified type Problem 12:00:00 AM EST eCW1 ([facility]) Z96.652 [id number] History of left knee replacement Problem 03/05/2020 12:00:00 AM EST eCW1 ([facility]) K21.9 Gastroesophageal reflux disease Gastroes ophageal reflux disease, unspecified whether esophagitis present Problem 03/05/2020 12:00:00 AM EST eCW1 ([facility]) Z95.5 [id number] History of coronary artery stent placemen t Problem 03/05/2020 12:00:00 AM EST eCW1 ([facility]) G20 [id number] Parkinson disease Problem 03/05/2020 12:00:0 0 AM EST eCW1 ([facility]) Surgeries/Procedures Procedure Description Date Indications Data Source(s) Monitoring of Cardiac Electrical Activity, External Ap proach Monitoring of Cardiac Electrical Activity, External Approach 01/16/2021 12:00:00 AM EDT [facility] ECHO TTHRC R-T 2D W/WOM-MODE COMPL SPEC&COLR DOP 01/15 12:00:00 AM EDT [facility] ([facility]) Magnetic Resonance Angiogtaphy Head W/O Contrast Material(S) 12/27/2020 12:00:00 AM EDT [facility] ([facility]) Magnetic Resonance Angiogtaphy Head W/O Contrast Material(S) 12/27/2020 12:00:00 AM EDT [facility] ([facility]) Magnetic Resonance Angiography Neck W/O Contrast Materials 12/27/2020 12:00:00 AM EDT [facility] ([facility]) Magnetic Resonance Angiography Neck W/O Contrast Materials 12/27/2020 12:00:00 AM EDT [facility] ([facility]) MRI BRAIN BRAIN STEM W/O CONTRAST MATERIAL 12/27/2020 12:00:00 AM EDT [facility] ([facility] ) MRI BRAIN BRAIN STEM W/O CONTRAST MATERIAL 12/27/2020 12:00:00 AM EDT MED[facility] ([facility] ) OFFICE OUTPATIENT NEW 45 MINUTES 12/26/2020 12:00:00 A M EDT [facility] ([facility], ) OFFICE OUTPATIENT NEW 60 MINUTES 12/12/2020 12:00:00 A M EDT [facility] ([facility] ) ECG ROUTINE ECG W/LEAST 12 LDS W/I&R <td>POCT AMB EKG</td><td>Routine</td><td>11/04/2020 1:51 PM EDT</td><td> Paroxysmal atrial fibrillation</td><td> </td> 11/04/2020 01:51:00 PM EDT Paroxysmal atrial fibrillation [facility] Paroxysmal atrial fibrillation ECG ROUTINE ECG W/LEAST 12 LDS W/I&R <td>POCT AMB EKG</td><td>Routine</td><td>05/09/2020 2:05 PM EST</td><td> Coronary artery disease involving mechoopda coronary artery of mechoopda heart with angina pectoris</td><td> </td> 05/09/2020 07:05:00 PM EST Coronary artery disease involving mechoopda coronary artery of mechoopda heart with angina pectoris [facility] Coronary artery disease involving mechoopda coronary artery of mechoopda heart with angina pectoris Immunization: Flublok Quadrivalent (18 years & older) 0.5mL IM (Influenza) 03/05/2020 12:00:00 AM EST eCW1 ([facility] Results ID Date Data Source [id number] 01/18/2021 02:04:00 PM EDT [facility] [address] [place] [address] PHONE: [phone] FAX: [phone] Name .................. : OSCAR AGOSTO Acct Number.................. : [id number] ROOM. ................. : 106-1 MR Number ................... : [id number] Stay type ............. : I/P Discharge Date......... ... : Admit Date ......... : 01/16/21 Admit Phys .................... : BOO J Date of ....... : 1945 Family Phys ................... : NO PCP Phone .................. : [phone] Age ................................ : 75 Film# .................. .:[id number] Sex ................................. : F Unsigned transcriptions are preliminary reports and do not represent a medical or legal document CT ABD & PELV W/[place] W/[place] [id number] COMPLETE:01/16/21 10:37 03027 Reason for Exam: abdominla pain, n/v CT ABDOMEN AND PELVIS WITHOUT IV CONTRAST INDICATION: Abdominal pain, nausea and vomiting COMPARISON: None IV CONTRAST: None One or more of the following dose reduction techniques were utilized in effectively lowering the radiation dose for this examination: Automated Exposure Control, Adjustment of the mA and/or kV according to patient size, or Iterative reconstruction. FIN DINGS: LUNG BASES: No pulmonary nodules or masses. No pleural effusions. LIVER/BILIARY: Cystic lesion anterior right lobe of the liver 37 mm. No gallstones. Bile ducts are not dilated. SPLEEN: Normal. PANCREAS: Normal. ADRENALS: Normal bilaterally. RIGHT KIDNEY: No stones, masses or hydronephrosis. LEFT KIDNEY: No stones, masses or hydronephrosis. : Small amount of gas in the urinary bladder. No stones. No abnormalities are seen in the reproductive organs. BOWEL/GI: Multiple diverticula in the sigmoid colon. No wall thickening or surrounding Page 1 of 2 [facility] [address] [place] [address] PHONE: [phone] FAX: [phone] Name .................. : OSCAR AGOSTO Acct Number.................. : [id number] ROOM. ................. : 106-1 MR Number ................... : [id number] Stay type ............. : I/P Discharge Date......... ... : Admit Date ......... : 01/16/21 Admit Phys .................... : BOO Veronica Date of ....... : 1945 Family Phys ................... : NO PCP Phone .................. : [phone] Age ................................ : 75 Film# .................. .:[id number] Sex ................................. : F Unsigned transcriptions are preliminary reports and do not represent a medical or legal document CT ABD & PELV W/[place] ORAL W/[place] [id number] COMPLETE:01/16/21 10:37 81505 Reason for Exam: abdominla pain, n/v inflammation. No dilated bowel or obstruction. The appendix is not identified. No hernia seen. NODES/RETROPERITONEUM: No adenopathy. No AAA. SKELETAL: Mild depression superior endplate T12 with sclerosis suggesting it is a chronic abnormality. Moderate disc space narrowing and disc degeneration throughout the lower thoracic and lumbar spine. Severe facet arthropathy L3-4, L4-5, L5-S1. Mild grade 1 anterolisthesis L4-5. IMPRESSION: 1. Sigmoid diverticulosis. No diverticulitis. 2. No bowel obstruction. 3. Small amount of gas in the urinary bladder. This could be from recent instrumentation. Electronically Reviewed and Signed By Yovani Pike MD , 01/18/21 14:04, JUAN Transcribe Initials: CHAR , Transcribe Date: 01/16/21 18:05, Dictation Date: Copy for: 710 MED REC DISCHARGED Page 2 of 2 Name Value Range Interpretation Code Description Data Monie rce(s) Supporting Document(s) ID Date Data Source [id number] 01/18/2021 02:04:00 PM EDT [facility] [address] [place] [address] PHONE: [phone] FAX: [phone] Name .................. : OSCAR AGOSTO Acct Number.................. : [id number] ROOM. ................. : 106-1 Number ................... : [id number] Stay type ............. : I/P Discharge Date......... ... : Admit Date ......... : 01/16/21 Admit Phys .................... : BOO Veronica Date of ....... : 1945 Family Phys ................... : NO PCP Phone .................. : [phone] Age ................................ : 75 Film# .................. .:[id number] Sex ................................. : F Unsigned transcriptions are preliminary reports and do not represent a medical or legal document CAROTID [id number] COMPLETE:01/16/21 08:37 [id number] (REASON FOR PROCEDURE :VERTIGO ULTRASOUND CAROTID DUPLEX INDICATION: Vertigo COMPARISON: None TECHNIQUE: Duplex imaging with Doppler and spectral analysis were used to study the carotid vessels in the neck. FINDINGS: Doppler investigation yields the following values: REECE: 84 cm/sec peak systolic; 27 cm/sec end diastolic RCCA: 84.3 cm/sec peak systolic; 23 cm/sec end diastolic ICA/CCA Ratios: 0.99 cm/sec peak systolic LICA: 90.2 cm/sec peak systolic; 18 cm/sec end diastolic LCCA: 105 cm/sec peak systolic; 27 cm/sec end diastolic ICA/CCA Ratios: 0.80 cm/sec peak systolic Vertebral arteries demonstrate antegrade flow. No significant plaque formation identified.. Velocity measurements have been correlated to angiographic stenosis calculation based on distal internal carotid diameter as defined by the Society of Radiologists in Ultrasound, Consensus Conference. Radiology 2003; 229; 340-346. IMPRESSION: No stenosis identified Electronically Reviewed and Signed By Yovani Pike MD , 01/18/21 14:04, JWS Page 1 of 2 [facility] [address] [place] [address] PHONE: [phone] FAX: [phone] Name .................. : OSCAR AGOSTO Acct Number.................. : [id number] ROOM. ................. : 106-1 MR Number ................... : [id number] Stay type ............. : I/P Discharge Date......... ... : Admit Date ......... : 01/16/21 Admit Phys .................... : BOO Veronica Date of ....... : 1945 Family Phys ................... : NO PCP Phone .................. : [phone] Age ................................ : 75 Film# .................. .:[id number] Sex ................................. : F Unsigned transcriptions are preliminary reports and do not represent a medical or legal document CAROTID [id number] COMPLETE:01/16/21 08:37 [id number] (REASON FOR PROCEDURE :VERTIGO Transcribe Initials: DZ , Transcribe Date: 01/16/21 18:04, Dictation Date: Copy for: 710 MED REC DISCHARGED Page 2 of 2 Name Value Range Interpretation Code Description Data Monie rce(s) Supporting Document(s) ID Date Data Source [id number] 01/18/2021 02:04:00 PM EDT [facility] [address] [place] [address] PHONE: [phone] FAX: [phone] Name .................. : OSCAR AGOSTO Acct Number.................. : [id number] ROOM. ................. : 106-1 MR Number ................... : [id number] Stay type ............. : I/P Discharge Date......... ... : Admit Date ......... : 01/16/21 Admit Phys .................... : BOO Veronica Date of ....... : 1945 Family Phys ................... : NO PCP Phone .................. : [phone] Age ................................ : 75 Film# .................. .:[id number] Sex ................................. : F Unsigned transcriptions are preliminary reports and do not represent a medical or legal document CHEST 2 VIEWS [id number] COMPLETE:01/16/21 10:37 02294 Reason for Exam: SOB CHEST TWO VIEWS AP AND LATERAL INDICATION: Shortness of breath COMPARISON: 11/24/2019 FINDINGS: Mediastinal and hilar structures are normal. Cardiac silhouette is unremarkable. EKG wires are projected over the chest. Lungs are clear. No pulmonary edema. No pleural effusions or pneumothorax. Skeletal structures are intact. IMPRESSION: No acute disease. Electronically Reviewed and Signed By Yovani Pike MD , 01/18/21 14:04, JUAN Transcribe Initials: CHAR , Transcribe Date: 01/16/21 17:51, Dictation Date: Copy for: [address] [place] [address] Page 1 of 1 Name Value Range Interpretation Code Description Data Monie rce(s) Supporting Document(s) ID Date Data Source [id number] 01/17/2021 06:28:00 AM EDT [facility] ([facility]) Name Value Range Interpretation Code Description Data Monie rce(s) Supporting Document(s) Laboratory test finding (navigational concept) Laboratory test result [facility] ([facility] MD) BASIC METABOLIC PANEL Laboratory test finding (navigational concept) 4.5 meq/L 3.6-5.0 [facility] ([facility]) Laboratory test finding (navigational concept) 141 meq/L 134-153 [facility] ([facility]) Laboratory test finding (navigational concept) 111 meq/L 9 8-107 Above high normal [facility] ([facility]) Laboratory test finding (navigational concept) 19 meq/L 22-30 Below low normal [facility] ([facility]) Laboratory test finding (navigational concept) 8 mg/dL 7-21 [facility] ([facility]) Laboratory test finding (navigational concept) 126 mg/dL 7 0-99 Above high normal [facility] ([facility]) Laboratory test finding (navigational concept) 11 8-27 [facility] ([facility]) Laboratory test finding (navigational concept) 0.7 mg/dL 0.7-1.5 [facility] ([facility]) Laboratory test finding (navigational concept) 75 yrs [facility] ([facility]) Laboratory test finding (navigational concept) 8.6 mg/dL 8.4-10.2 [facility] ([facility]) Laboratory test finding (navigational concept) 11.0 mmol/L 8.0-16.0 [facility] ([facility]) Laboratory test finding (navigational concept) Laboratory test result [facility] ([facility]) Laboratory test finding (navigational concept) Laboratory test result [facility] ([facility]) Male GFR Interprentation 20-49 yrs >60 mL/min Normal 50-59 yrs >56 mL/min Normal 60-69 yrs >49 mL/min Normal 70-79yrs >42 mL/min Normal 80 and above >35 mL/min Normal Female GFR Interpretation 20-39 yrs >60 mL/min Normal 40-49 yrs >58 mL/min Normal 50-59 yrs >51 mL/min Normal 60-69 yrs >45 mL/min Normal 70-79 yrs >39 mL/min Normal 80 and above >32 mL/min Normal ID Date Data Source [id number] 01/17/2021 06:28:00 AM EDT [facility] ([facility]) Name Value Range Interpretation Code Description Data Monie rce(s) Supporting Document(s) Laboratory test finding (navigational concept) Laboratory test result [facility] ([facility]) COMPLETE BLOOD COUNT [WB] WBC 4.4___ 10^3/uL [...] NRBC % ] { RBC MORPH __NOT_INDICATED___ ID Date Data Source [id number] 01/17/2021 07:27:00 AM EDT [facility] Name Value Range Interpretation Code Description Data Monie rce(s) Supporting Document(s) BASIC METABOLIC PANEL [facility] BASIC METABOLIC PANEL Sodium [Moles/volume] in Serum or Plasma 141 mEq/L 134 - 153 [facility] Potassium [Moles/volume] in Serum or Plasma 4.5 mEq/L 3.6 - 5.0 [facility] Chloride [Moles/volume] in Serum or Plasma 111 mEq/L 98 - 107 H [facility] Carbon dioxide, total [Moles/volume] in Serum or Plasma 19 MEQ/L 22 - 30 L [facility] Glucose [Mass/volume] in Serum or Plasma 126 MG/DL 70 - 99 H [facility] BUN 8 MG/DL 7 - 21 [facility] al Creatinine [Mass/volume] in Serum or Plasma 0.7 MG/DL 0.7 - 1.5 [facility] BUN/CREAT 11 8 - 27 [facility] Calcium [Mass/volume] in Serum or Plasma 8.6 MG/DL 8.4 - 10.2 [facility] Anion gap 3 in Serum or Plasma 11.0 mmol/L 8.0 - 16.0 [facility]GE 75 [facility] G[facility] >60 [facility] NON-AA GFR >60 mL/min [facility] ital Male GFR Inter prentation 20-49 yrs >60 mL/min Normal 50-59 yrs >56 mL/min Normal 60-69 yrs >49 mL/min Normal 70-79yrs >42 mL/min Normal 80 and above >35 mL/min Normal Female GFR Interpretation 20-39 yrs >60 mL/min Normal 40-49 yrs >58 mL/min Normal 50-59 yrs >51 mL/min Normal 60-69 yrs >45 mL/min Normal 70-79 yrs >39 mL/min Normal 80 and above >32 mL/min Normal ID Date Data Source [id number] 01/17/2021 07:15:00 AM EDT [facility] Name Value Range Interpretation Code Description Data Monie rce(s) Supporting Document(s) CBC W/AUTOMATED DIFF [facility] COMPLETE BLOOD COUNT[WB] WBC 4.4___ 10[RB] RBC 3.97__ L 10[HG] HEMOGLOBIN 12.9___ g/dL (L=12.0 H=16.0 )][HC] HEMATOCRIT 39.5___ % (L=37.0 H=47.0 )][MV] MCV 99.5___ fL (L=81.0 H=101 )][MH] MCH 32.5___ pg (L=27.0 H=34.0 )][CC] MCHC 32.7___ g/dL (L=31.0 H=36.0 )][RD] RDW 12.3___ % (L=11.5 H=14.5 )][PL] PLATELETS 95 L 10[MP] MPV 12.2___ H fL (L=7.4 H=10.4 )][N%] NEUT 56.1___ % (L=37.0 H=80.0 )][L%] LYMPH 29.5___ % (L=25.0 H=40.0 )][M%] MONO 8.2___ H % (L=3.0 H=8.0 )][E%] EOS 5.5___ % (L=0.0 H=7.0 )][B%] BASO 0.5___ % (L=0.0 H=2.5 )][I%] %IG 0.2___ H % (L=0.0 H=0.0 )][n%] %NRBC 0.0___ % (L=0.0 H=0.0 )][N#] #NEUT 2.46__ 10[L#] #LYMPH 1.29__ 10[M#] #MONO 0.36__ 10[E#] #EOS 0.24__ 10[B#] #BASO 0.02__ 10[I#] #IG 0.01__ 10[n#] #NRBC 0.00__ 10{ MANUAL DIFF ___SEE_BELOW [ SEGS 55 % (L=37 H=80 )][ BAND % (L=0 H=5 )][ %LYMPH 36 % (L=25 H=40 )][ %MONO 7 % (L=3 H=8 )][ %EOS 2 % (L=0 H=7 )][ %BASO % (L=0 H=2 )][ METAMYELOCYTE % ][ MYELOCYTE % ][ PROMYELOCYTE % ][ BLASTS % ][ PAUL LYM % ][ NRBC % ]{ RBC MORPH __NOT_INDICATED___ ID Date Data Source [id number] 01/16/2021 07:14:00 [place] [address] PHONE: [phone] FAX: [phone] Name .................. : OSCAR AGOSTO Acct Number.................. : [id number] ROOM. ................. : VT-10 MR Number ................... : [id number] Stay type ............. : E/R Discharge Date......... ... : Admit Date ......... : 0 01/14/21 Admit Phys .................... : LOYOLA DADA Kevin Date of ....... : 1945 Family Phys ................... : NO PCP Phone .................. : [phone] Age ................................ : 75 Film# .................. .:[id number] Sex ................................. : F Unsigned transcriptions are preliminary reports and do not represent a medical or legal document CT HEAD W/O CONTRAST [id number] COMPLETE:01/14/21 14:19 [id number] Reason(s): Dizziness CT BRAIN WITHOUT IV CONTRAST INDICATION: Dizziness COMPARISON: None CONTRAST: None One or more of the following dose reduction techniques were utilized in effectively lowering the radiation dose for this examination: Automated Exposure Control, Adjustment of the mA and/or kV according to patient size, or Iterative Reconstruction. FINDINGS: Ventricles and sulci probably prominent. Mild periventricular hypodensities. No extra-axial collection or intracranial hemorrhage. No indication of acute or prior ischemic CVA. No mass or mass effect. Calvarium and skull base are within normal limits. To the extent included sinuses are clear. Normal mastoid aeration. IACs appear grossly symmetric. IMPRESSION: Mild age compatible atrophy and chronic ischemic small vessel changes. No acute intracranial abnormality or specific etiology for dizziness is identified. Electronically Reviewed and Signed By Crescencio Gallegos MD , 01/16/21 19:14, SCB Transcribe Initials: DZ , Transcribe Date: 01/14/21 17:08, Dictation Date: Page 1 of [address] [place] [address] PHONE: [phone] FAX: [phone] Name .................. : OSCAR AGOSTO Acct Number.................. : [id number] ROOM. ................. : VT-10 MR Number ................... : [id number] Stay type ............. : E/R Discharge Date......... ... : Admit Date ......... : 01/14/21 Admit Phys .................... : NIR Brown Date of ....... : 1945 Family Phys ................... : NO PCP Phone .................. : [phone] Age ................................ : 75 Film# .................. .:[id number] Sex ................................. : F Unsigned transcriptions are preliminary reports and do not represent a medical or legal document CT HEAD W/O CONTRAST [id number] COMPLETE:01/14/21 14:19 [id number] Reason(s): Dizziness Copy for: EMERGENCY DEPT via modem Copy for: 710 MED REC Page 2 of 2 Name Value Range Interpretation Code Description Data Monie rce(s) Supporting Document(s) ID Date Data Source [id number] 01/16/2021 05:20:00 PM EDT [facility] (Hesham Diamond MD) Name Value Range Interpretation Code Description Data Monie rce(s) Supporting Document(s) Laboratory test finding (navigational concept) Laboratory test result [facility] (Hesham Diamond MD) COMPREHENSIVE METABOLIC PANEL Laboratory test finding (navigational concept) 142 meq/L 134-153 [facility] (Hesham Diamond MD) Laboratory test finding (navigational concept) 3.9 meq/L 3.6-5.0 [facility] (Hesham Diamond MD) Laboratory test finding (navigational concept) 19 meq/L 22-30 Below low normal [facility] (Hesham Diamond MD) Laboratory test finding (navigational concept) 110 meq/L 9 8-107 Above high normal [facility] (Hesham Diamond MD) Laboratory test finding (navigational concept) 0.7 mg/dL 0.7-1.5 [facility] (Hesham Diamond MD) Laboratory test finding (navigational concept) 108 mg/dL 7 0-99 Above high normal [facility] (Hesham Diamond MD) Laboratory test finding (navigational concept) 11 mg/dL 7-21 [facility] (Hesham Diamond MD) Laboratory test finding (navigational concept) 16 8-27 [facility] (Hesham Diamond MD) Laboratory test finding (navigational concept) 5.9 g/dL 6 .3-8.2 Below low normal [facility] (Hesham Diamond MD) Laboratory test finding (navigational concept) 2.1 0.8-2.0 Above high normal [facility] (Hesham Diamond MD) Laboratory test finding (navigational concept) 4.0 g/dL 3.9-5.0 [facility] (Hesham Diamond MD) Laboratory test finding (navigational concept) 1.9 GM/DL 2 .4-3.2 Below low normal [facility] (Hesham Diamond MD) Laboratory test finding (navigational concept) 9.0 mg/dL 8.4-10.2 [facility] (Hesham Diamond MD) Laboratory test finding (navigational concept) Laboratory test resu lt 0.2-1.3 [facility] (Hesham Diamond MD) Laboratory test finding (navigational concept) 90 U/L 38-126 [facility] (Hesham Diamond MD) Laboratory test finding (navigational concept) Laboratory test r esult 7-56 Below low normal [facility] (Hesham Diamond MD) Laboratory test finding (navigational concept) 11 U/L 5-40 [facility] (Hesham Diamond MD) Laboratory test finding (navigational concept) 75 yrs [facility] (Hesham Diamond MD) Laboratory test finding (navigational concept) Laboratory test result [facility] (Hesham Diamond MD) Laboratory test finding (navigational concept) 13.0 mmol/L 8.0-16.0 [facility] (Hesham Diamond MD) Laboratory test finding (navigational concept) Laboratory test result [facility] (Hesham Diamond MD) Male GFR Interprentation 20-49 yrs >60 mL/min Normal 50-59 yrs >56 mL/min Normal 60-69 yrs >49 mL/min Normal 70-79yrs >42 mL/min Normal 80 and above >35 mL/min Normal Female GFR Interpretation 20-39 yrs >60 mL/min Normal 40-49 yrs >58 mL/min Normal 50-59 yrs >51 mL/min Normal 60-69 yrs >45 mL/min Normal 70-79 yrs >39 mL/min Normal 80 and above >32 mL/min Normal ID Date Data Source [id number] 01/16/2021 05:20:00 PM EDT [facility] (Hesham Diamond MD) Name Value Range Interpretation Code Description Data Monie rce(s) Supporting Document(s) Laboratory test finding (navigational concept) Laboratory test result [facility] (Hesham Diamond MD) COMPLETE BLOOD COUNT Laboratory test finding (navigational concept) 5.4 10^3/uL 4.2-11.0 [facility] (Hesham Diamond MD) Laboratory test finding (navigational concept) 4.20 10^6/uL 4.20-5.40 [facility] (Hesham Diamond MD) Laboratory test finding (navigational concept) 13.7 g/dL 12.0-16.0 [facility] (Hesham Diamond MD) Laboratory test finding (navigational concept) 41.3 % 37.0-47.0 [facility] (Hesham Diamond MD) Laboratory test finding (navigational concept) 98.3 fL 81.0-101 [facility] (Hesham Diamond MD) Laboratory test finding (navigational concept) 32.6 pg 27.0-34.0 [facility] (Hesham Diamond MD) Laboratory test finding (navigational concept) 33.2 g/dL 31.0-36.0 [facility] (Hesham Diamond MD) Laboratory test finding (navigational concept) 12.5 % 11.5-14.5 [facility] (Hesham Diamond MD) Laboratory test finding (navigational concept) 11.7 fL 7 .4-10.4 Above high normal [facility] (Hesham Diamond MD) Laboratory test finding (navigational concept) 144 10^3/uL 1 50-450 Below low normal [facility] (Hesham Diamond MD) Laboratory test finding (navigational concept) 23.3 % 2 5.0-40.0 Below low normal [facility] (Hesham Diamond MD) Laboratory test finding (navigational concept) 63.8 % 37.0-80.0 [facility] (Hesham Diamond MD) Laboratory test finding (navigational concept) 7.8 % 3.0-8.0 [facility] (Hesham Diamond MD) Laboratory test finding (navigational concept) 4.3 % 0.0-7.0 [facility] (Hesham Diamond MD) Laboratory test finding (navigational concept) 0.0 % 0.0-0.0 [facility] (Hesham Diamond MD) Laboratory test finding (navigational concept) 0.2 % 0.0-0.0 Above high normal [facility] (Hesham Diamond MD) Laboratory test finding (navigational concept) 0.6 % 0.0-2.5 [facility] (Hesham Diamond MD) Laboratory test finding (navigational concept) 3.42 10^3/uL 2.00-6.90 [facility] (Hesham Diamond MD) Laboratory test finding (navigational concept) 0.42 10^3/uL 0.00-0.90 [facility] (Hesham Diamond MD) Laboratory test finding (navigational concept) 1.25 10^3/uL 0.60-3.40 [facility] (Hesham Diamond MD) Laboratory test finding (navigational concept) 0.23 10^3/uL 0.00-0.70 [facility] (Hesham Diamond MD) Laboratory test finding (navigational concept) 0.03 10^3/uL 0.00-0.20 [facility] (Hesham Diamond MD) Laboratory test finding (navigational concept) 0.00 10^3/uL 0.00-0.00 [facility] (Hesham Diamond MD) Laboratory test finding (navigational concept) 0.01 10^3/uL 0.00-0.10 [facility] (Hesham Diamond MD) Laboratory test finding (navigational concept) Laboratory test result [facility] (Hesham Diamond MD) Laboratory test finding (navigational concept) Laboratory test result [facility] (Hesham Diamond MD) ID Date Data Source [id number] 01/16/2021 06:42:00 PM EDT [facility] Name Value Range Interpretation Code Description Data Monie rce(s) Supporting Document(s) COMPREHENSIVE METABOLIC PANEL [facility] COMPREHENSIVE METABOLIC PANEL Sodium [Moles/volume] in Serum or Plasma 142 mEq/L 134 - 153 [facility] Potassium [Moles/volume] in Serum or Plasma 3.9 mEq/L 3.6 - 5.0 [facility] Chloride [Moles/volume] in Serum or Plasma 110 mEq/L 98 - 107 H [facility] Carbon dioxide, total [Moles/volume] in Serum or Plasma 19 MEQ/L 22 - 30 L [facility] Glucose [Mass/volume] in Serum or Plasma 108 MG/DL 70 - 99 H [facility] BUN 11 MG/DL 7 - 21 [facility] Creatinine [Mass/volume] in Serum or Plasma 0.7 MG/DL 0.7 - 1.5 [facility] BUN/CREAT 16 8 - 27 [facility] Protein [Mass/volume] in Serum or Plasma 5.9 G/DL 6.3 - 8.2 L [facility] Albumin [Mass/volume] in Serum or Plasma 4.0 G/DL 3.9 - 5.0 [facility] Globulin [Mass/volume] in Serum by calculation 1.9 GM/DL 2.4 - 3.2 L [facility] A/G RATIO 2.1 0.8 - 2.[address] [facility] Calcium [Mass/volume] in Serum or Plasma 9.0 MG/DL 8.4 - 10.2 [facility] Bilirubin.total [Mass/volume] in Serum or Plasma <0.7 MG/DL 0.2 - 1.3 [facility] Alkaline phosphatase [Enzymatic activity/volume] in Serum or Plasma 90 U/L 38 - 126 [facility] Aspartate aminotransferase [Enzymatic activity/volume] in Serum or Plasma 11 U/L 5 - 40 [facility] Alanine aminotransferase [Enzymatic activity/volume] in Seru m or Plasma <5 U/L 7 - 56 L [facility] Anion gap 3 in Serum or Plasma 13.0 mmol/L 8.0 - 16.0 [facility] AGE 75 yrs [facility] al NON-AA GFR >60 mL/min [facility] ital AFR AMER GFR >60 [facility] Male GFR In terprentation 20-49 yrs >60 mL/min Normal 50-59 yrs >56 mL/min Normal 60-69 yrs >49 mL/min Normal 70-79yrs >42 mL/min Normal 80 and above >35 mL/min Normal Female GFR Interpretation 20-39 yrs >60 mL/min Normal 40-49 yrs >58 mL/min Normal 50-59 yrs >51 mL/min Normal 60-69 yrs >45 mL/min Normal 70-79 yrs >39 mL/min Normal 80 and above >32 mL/min Normal ID Date Data Source [id number] 01/16/2021 05:52:00 PM EDT [facility] Name Value Range Interpretation Code Description Data Monie rce(s) Supporting Document(s) CBC W/AUTOMATED DIFF [facility] COMPLETE BLOOD COUNT Leukocytes [#/volume] in Blood by Automated count 5.4 10^3/uL 4.2 - 1 1.0 [facility] Erythrocytes [#/volume] in Blood by Automated count 4.20 10^6/uL 4. 20 - 5.40 [facility] Hemoglobin [Mass/volume] in Blood 13.7 g/dL 12.0 - 16.0 [facility] Hematocrit [Volume Fraction] of Blood by Automated count 41.3 % 3 7.0 - 47.0 [facility] Erythrocyte mean corpuscular volume [Entitic volume] by Auto mated count 98.3 fL 81.0 - 101 [facility] Erythrocyte mean corpuscular hemoglobin [Entitic mass] by Automated count 32.6 pg 27.0 - 34.0 [facility] Erythrocyte mean corpuscular hemoglobin concentration [Mass/volume] by Automated count 33.2 g/dL 31.0 - 36.0 [facility] Erythrocyte distribution width [Ratio] by Automated count 12.5 % 11.5 - 14.5 [facility] Platelets [#/volume] in Blood by Automated count 144 10^3/uL 150 - 45 0 L [facility] Platelet mean volume [Entitic volume] in Blood by Automated count 11.7 fL 7.4 - 10.4 H [facility] Neutrophils/100 leukocytes in Blood by Automated count 63.8 % 37. 0 - 80.0 [facility] Lymphocytes/100 leukocytes in Blood by Manual count 23.3 % 25.0 - 40.0 L [facility] Monocytes/100 leukocytes in Blood by Automated count 7.8 % 3.0 - 8.0 [facility] Eosinophils/100 leukocytes in Blood by Automated count 4.3 % 0.0 - 7.0 [facility] Basophils/100 leukocytes in Blood by Automated count 0.6 % 0.0 - 2.5 [facility] %IG 0.2 % 0.0 - 0.0 H [facility] %NRBC 0.0 % 0.0 - 0.0 [facility] al Neutrophils [#/volume] in Blood by Automated count 3.42 10^3/uL 2.00 - 6.90 [facility] Lymphocytes [#/volume] in Blood by Automated count 1.25 10^3/uL 0.60 - 3.40 [facility] Monocytes [#/volume] in Blood by Automated count 0.42 10^3/uL 0.00 - 0.90 [facility] Eosinophils [#/volume] in Blood by Automated count 0.23 10^3/uL 0.00 - 0.70 [facility] Basophils [#/volume] in Blood by Automated count 0.03 10^3/uL 0.00 - 0.20 [facility] #IG 0.01 10^3/uL 0.00 - 0.10 [facility] #NRBC 0.00 10^3/uL 0.00 - 0.00 [facility] MANUAL DIFF NOT INDICATED [facility] RBC MORPH NOT INDICATED [facility] spital ID Date Data Source [id number] 01/16/2021 10:29:00 AM EDT [facility] [address] [place] [address] PHONE: [phone] FAX: [phone] Name .................. : OSCAR AGOSTO Acct Number.................. : [id number] ROOM. ................. : 106-1 MR Number ................... : [id number] Stay type ............. : O/P Discharge Date......... ... : Admit Date ......... : 01/14/21 Admit Phys .................... : BOO Veronica Date of ....... : 1945 Family Phys ................... : NO PCP Phone .................. : [phone] Age ................................ : 75 Film# .................. .:[id number] Sex ................................. : F Unsigned transcriptions are preliminary reports and do not represent a medical or legal document MRI BRAIN W/O CONTRAST [id number] COMPLETE:01/15/21 15:06 NATALIE [id number] Reason for Exam: VERTIGO MRI BRAIN WITHOUT IV CONTRAST INDICATION: Vertigo COMPARISON: CT 01/14/2021 CONTRAST: None TECHNIQUE: MRI of the brain was performed in multiple planes with multiple MRI sequences. FINDINGS: BRAIN PARENCHYMA: There is no acute parenchymal hemorrhage, mass, mass-effect, or midline shift. Moderate increased T2 signal in the periventricular white matter which is likely related to chronic small vessel ischemia. VENTRICLES/SULCI: The ventricles and sulci are normal in size and configuration for the patient's age. VASCULAR: There is no evidence of restricted diffusion to suggest acute infarction. No old infarcts are noted. Normal intracranial arterial flow-voids are present. EXTRAAXIAL/DURA: No extraaxial mass or significant dural abnormality. No pituitary mass. No cerebellopontine angle mass. SKULL BASE/CALVARIUM: The visualized paranasal sinuses and orbits appear unremarkable. No abnormal mastoid fluid signal. There are no significant calvarial lesions. IMPRESSION: Mild age-appropriate atrophy. Periventricular increased T2 signal likely due to chronic small vessel ischemic change also within the expected range for the patient's age. No acute infarction or mass. Page 1 of 2 [facility] [address] [place] [address] PHONE: [phone] FAX: [phone] Name .................. : OSCAR SURENDRA Acct Number.................. : [id number] ROOM. ................. : 106- 1 MR Number ................... : [id number] Stay type ............. : O/P Discharge Date......... ... : Admit Date ......... : 01/14/21 Admit Phys .................... : BOO Veronica Date of ....... : 1945 Family Phys ................... : NO PCP Phone .................. : [phone] Age ................................ : 75 Film# .................. .:[id number] Sex ................................. : F Unsigned transcriptions are preliminary reports and do not represent a medical or legal document MRI BRAIN W/O CONTRAST [id number] COMPLETE:01/15/21 15:06 NATALIE [id number] Reason for Exam: VERTIGO Electronically Reviewed and Signed By Yovani Pike MD , 01/16/21 10:29, JUAN Transcribe Initials: CHAR , Transcribe Date: 01/15/21 17:41, Dictation Date: Copy for: B[facility] [place] Copy for: JUAN JOSE DINERO via modeTradeos Copy for: EMERGENCY DEPT via modem Copy for: [facility] MED REC Page 2 of 2 Name Value Range Interpretation Code Description Data Monie rce(s) Supporting Document(s) ID Date Data Source [id number] 01/14/2021 01:40:00 PM EDT [facility] 1 OrderSheet [facility] Emergency Department [address] [place] [address] Phone #: ext- [phone] 01/14/2021 13:32 Patient: SURENDRA MOORE Sex: F : 1945 Age: 75yWEIGHT:77.5 kg HEIGHT:57 inches BMI:37.0ALLERGIES: PenicillinsCHIEF COMPLAINT: dizzinessDIAGNOSIS: Acute vestibular neuronitis, Cerebrovascular accidentLAB ORDERSOrder Description Priority Entered Acknowledged InitialedCBC w Diff STAT 14:19 01/14/2021 14:21 Dada Grimaldo ; Krystian RNCMP STAT 14:19 01/14/2021 14:21 Dada Grimaldo ; Krystian GUIDOUA Reflex to UA 15:21 01/14/2021 15:21 TerryCulture Sheldon Boland RN; Krystian RN Per protocol; Dada LoyolaCOVID- 19 CAH (Not STAT 18:13 01/14/2021 18:20 TerrySymptomatic as Nani Carter RN; Krystian RNDefined by [facility]) Per protocol; Nir(01/14/2021) Dada(Unknown if FristTest) (NotHospitalized) (Not) (NotResident inCongregate CareSetting) (NotEmployed inHealthcare Setting)DIAGNOSTIC STUDY ORDERSOrder Description Priority Entered Acknowledged InitialedCT Head W/O Cont STAT 14:19 01/14/2021 14:21 Sheldon(Oxygen?(No)) Dada Loyola ; Krystian RN Reason for Study: DizzinessMEDIC ATION/IV/DRIP/FLUID ORDERSOrder Description Priority Entered Acknowledged InitialedZofran IVP 4 mg 14:19 01/14/2021 Cancelled: Other 14:29 Sheldon Boland 2 OrderSheet [facility] [address] [place] [address] Phone #: ext- [phone] 01/14/2021 13:32 Patient: SURENDRA MOORE Sex: F : 1945 Age: 75y Dada Loyola ; RNMeclizine PO 25 mg 14:19 01/14/2021 14:28 Sheldon(NOW x1) Dada Loyola ; Krystian GUIDOZofran ODT PO 4 14:29 01/14/2021 14:33 Terrymg (NOW x1) Sheldon Boalnd RN; Krystian GUIDO Verbal order per; Dada LoyolaGENERAL ORDERSOrder Description Priority Entered Acknowledged InitialedEKG 14:01/14/2021 14:21 Dada Grmialdo ; Krystian RN[Electronically signed by Mary Jane Byrnes R.N. (01/15/2021)][Electron ically signed by Dada Loyola (01/16/2021)][Electronically locked by Mary Jane Byrnes R.N. (01/15/2021)] Name Value Range Interpretation Code Description Data Monie rce(s) Supporting Document(s) ID Date Data Source [id number] 01/14/2021 01:40:00 PM EDT [facility] 1 Medication Reconciliation Report [facility] [address] [place] [address] Phone #: ext- [phone] 01/14/2021 13:32 Patient: SURENDRA MOORE Sex: F : 1945 Age: 75yWeight: 77.5 kgHeight/Length: 57 in.BMI: 37.0ALLERGIES: PenicillinsThe patient's Home Medications are listed below:THE FOLLOWING MEDICATIONS NEED TO BE RECONCILED: Aspirin Oral (81 mg) Atorvastatin Calcium Oral 40 mg Carbidopa-Levodopa Oral 25/100 mg, 1.5 tabs three times per day E liquis Oral (5 mg) Famotidine Oral 20 mg Gabapentin Oral (600 mg) Metoprolol Tartrate Oral (25 mg), 3 tabs twice per day Pantoprazole Sodium Oral (40 mg) Vimpat Oral (200 mg), 2x a day Vitamin B-1 Oral Vitamin c OralThe source(s) of the original Home Medication information:Not obtained.The following Medications were given to the patient in the Emergency Department:Meclizine [PO] PO 25 mg, administered: 14:25 01/14/2021 2 Medication Reconciliation Report [facility] [address] [place] [address] Phone #: ext- [phone] 01/14/2021 13:32 Patient: SURENDRA MOORE Sex: F : 1945 Age: 75yZofran ODT [PO] PO 4 mg, administered: 14:32 01/14/2021The following Medications were prescribed to the patient:None. Name Value Range Interpretation Code Description Data Monie rce(s) Supporting Document(s) ID Date Data Source [id number] 01/14/2021 01:40:00 PM EDT [facility] 1 Medication Administration Record [facility] [address] [place] [address] Phone #: ext- [phone] 01/14/2021 13:32 Patient: SURENDRA MOORE Sex: F : 1945 Age: 75yWeight: 77.5 kgHeight/Length: 57 inBMI: 37ALLERGIES: Penicillins Date/Time Medication Administered Medication OrderedGiven MECLIZINE [PO] Meclizine PO 25 mg (NOW x1)14:25 01/14/2021 Dose: 25 mg Tablets Nirali Boland RNGiven ZOFRAN ODT [PO] (ONDANSETRON Zofran ODT PO 4 mg (NOW x1)14:32 01/14/2021 HCL)Sheldon Boland RN Dose: 4 mg Tablets PO Name Value Range Interpretation Code Description Data Monie rce(s) Supporting Document(s) ID Date Data Source [id number] 01/14/2021 01:40:00 PM EDT [facility] 1 General Instructions [facility] [address] [place] [address] Phone #: ext- [phone] 01/14/2021 13:32 Patient: SURENDRA MOORE Sex: F : 1945 Age: 75yNontraumatic cerebrovascular accident- cerebellar hemorrhage involving an unknown intracranial artery.Acute bilateral vestibular neuronitis.(Electronically signed by Dada Loyola 01/16/2021 07:25) Name Value Range Interpretation Code Description Data Monie rce(s) Supporting Document(s) ID Date Data Source [id number] 01/14/2021 01:40:00 PM EDT [facility] 1 Clinical Report - Nurses [facility] [address] [place] [address] Phone #: ext- [phone] 01/14/2021 13:32 Patient: SURENDRA MOORE Sex: F : 1945 Age: 75yTRIAGEArrived by private vehicle. Historian: family. Accompanied by family.Acuity: LEVEL 3.Chief Complaint: (Dizziness, nausea).13:47 01/14/21. Alert. No acute distress.( Daughter reports pt has been nauseous and dizzy x 2 days. Denies vomiting. Has also had headache. Nocovid exposure, has had vaccine).SEPSIS SCREEN: SIRS SCREEN NEGATIVE. SEPSIS SCREEN NEGATIVE. No suspected or confirmedsigns of infection present.[place] COMA SCORE: 14- eyes open- spontaneous (4); best verbal response- confused (4); bestmotor response- obeys commands (6). --13:47 01/14/21 Shaniqua Salazar R.N.13:37 01/14/21. BP: 149/86. MAP: 107. HR: 80. RR: 17. O2 saturation: 95% on room air. Temp: 97.8 F.Pain level now: 09/26. --13:47 01/14/21 Shaniqua Salazar R.N.Weight: 77.5 kg. Height/Length: 57 inches. BMI: 37. --13:47 01/14/21 Shaniqua Salazar R.N.MedicationsAspirin Oral (Tablet Chewable 81 mg). --13:40 01/14/21 Shaniqua Salazar R.N. Atorvastatin Calcium Oral 40 mg. --13:40 01/14/21 Shaniqua Salazar R.N. Carbidopa-Levodopa Oral 25/100 mg (1.5 tabs three times per day). --13:41 01/14/21 Shaniqua Salazar R.N. Eliquis Oral (Tablet 5 mg). --13:41 01/14/21 Shaniqua Salazar R.N. Gabapentin Oral (Tablet 600 mg). --13:41 01/14/21 Shaniqua Salazar R.N. Metoprolol Tartrate Oral (Tablet 25 mg) (3 tabs twice per day). --13:42 01/14/21 Shaniqua Salazar R.N. Pantoprazole Sodium Oral (Packet 40 mg). --13:42 01/14/21 Shaniqua Salazar R.N. Vitamin B-1 Oral. --13:43 01/14/21 Shaniqua Salazar R.N. Vitamin c Oral. --13:43 01/14/21 Shaniqua Salazar R.N. Famotidine Oral 20 mg. --13:43 01/14/21 Shaniqua Salazar R.N. Vimpat Oral (Tablet 200 mg), 2x a day. --13:43 01/14/21 Shaniqua Salazar R.N.AllergiesPenicillins. --13:40 01/14/21 Shaniqua Salazar R.N.PROBLEMS:Hypertension.Dementia. 2 Clinical Report - Nurses [facility] [address] [place] [address] Phone #: ext- [phone] 01/14/2021 13:32 Patient: SURENDRA MOORE Sex: F : 1945 Age: 75yCVA - Cerebrovascular Accident.Parkinson's Disease. --13:44 01/14/21 Shaniqua Salazar R.N.ADDITIONAL SURGERIES:C section x3.Cyst removed under arm.Hysterectomy.L knee replaced.R arm surgery. --13:44 01/14/21 Shaniqua Salazar R.N.Cardiac stent. --13:47 01/14/21 Shaniqua Salazar R.N.Sadbkpo38:47 01/14/21.PAST MEDICAL HX: The patient has had a hysterectomy.SOCIAL HX: Former smoker, end date 30 years ago. No alcohol use or drug use. The patient wasoffered HIV testing but declined and hepatitis C testing but declined. The patient has not traveled outsidethe [place]Infectious disease exposure: The patient was not exposed to C-diff, MRSA or Coronavirus. (has had covidvaccine).SELF HARM ASSESSMENT: Self harm assessment was performed. The patient answered "no" to thequestion(s) "Have you recently felt down, depressed, or hopeless?", "Do you have thoughts of harming orkilling yourself?", "Do you have a plan for harming or killing yourself?" and "Have you recently had thoughtsabout harming or killing others?".ABUSE ASSESSMENT: No report of abuse.NUTRITIONAL RISK ASSESSMENT: The nutritional risk assessment revealed no deficiencies.LEARNING NEEDS ASSESSMENT: The learning needs assessment revealed no barriers.FALL RISK ASSESSMENT: Fall risk assessment c ompleted. Risk factors identified include patient agegreater than 65 years, diagnosis of stroke, parkinson's and alzheimer's and impairment of mobility. Fallinterventions initiated. Patient placed on stretcher. Side rails up x2. Bed in low position. Brakes on. Calllight in reach of patient and family.FUNCTIONAL ASSESSMENT: Functional assessment performed: requires assistance with the activities ofdaily living; uses wheelchair and walker- this mobility impairment is an ongoing problem; wears glasses;cognitive impairment- Alzheimer's disease and prior CVA.SKIN INTEGRITY ASSESSMENT: Skin integrity risk assessment completed. No skin integrity riskidentified. --13:47 01/14/21 Shaniqua Salazar R.N.FAMILY HX: 3 Clinical Report - Nurses [facility] [address] [place] [address] Phone #: ext- [phone] 01/14/2021 13:32 - Patient: SURENDRA MOORE Sex: F : 1945 Age: 75y No significant family medical history. --15:43 01/14/21 Dada Loyola. Interventions 13:47 01/14/21. Identification band on patient. To treatment room. --13:47 01/14/21 Shaniqua Salazar R.N. Allergy band on patient. --13:55 01/14/21 Sheldon Boland RN.PHYSICAL ASSESSMENTAmbulatory to room.GENERAL / NEURO / PSYCH: Alert. Oriented X 4.RESPIRATORY: Respirations not labored. Chest nontender. Breath sounds within normal limits.CVS: Capillary refill less than 2 seconds. Pulses within normal limits.GI / : Abdomen soft and nontender and normal bowel sounds.SKIN: Skin is warm and dry. --13:55 01/14/21 Sheldon Boland RN.NURSING PROGRESS NOTES13:48 01/14/21. corn detasseler, NIBP monitor and pulse oximeter placed on patient; auto haulaway driver-Lead II; monitor alarms on. EKG time: (13:38 01/14/2021). EKG was performed by a tech and shown tothe ED physician. Patient gowned. Reassurance given. Two patient identifiers checked. Call lightplaced in reach. Side rails up x 2. Bed placed in lowest position. Brakes of bed on. Patient ready forevaluation- ED physician and PA notified. --13:48 01/14/21 Shaniqua Salazar, Marlene 14:10 01/14/21. BP: 141/72. HR: 77. RR: 19. O2 saturation: 94%. --14:10 01/14/21 Daggett inside channel account manager, Karin, Tech1 14:25 01/14/2021 Meclizine PO Tablets 25 mg given. Allergies verified and confirmed 5 rights. --14:28 01/14/21 Sheldon Boland RN 14:32 01/14/2021 Zofran ODT (Ondansetron HCl) PO Tablets 4 mg given. Allergies verified and confirmed 5 rights. Information reviewed with patient. --14:33 01/14/21 Sheldon Boland RN Patient transported to CT by stretcher with mask and technology applications consultant. ([id number]). ( 1425 unable to locate vein for saline lock for IV zofran M D notified and med changed to PO). --14:35 01/14/21 Sheldon Boland RN Patient returned from CT by stretcher with mask and technology applications consultant. ([id number]). --14:52 01/14/21 Sheldon Boland RN 15:34 01/14/21. BP: 140/75. HR: 76. RR: 22. O2 saturation: 100%. --15:34 01/14/21 [facility] TechMariaelena Checked patient name and birthdate: patient confirmed. Clean catch urine collected; sample sent to lab for urinalysis. Specimen labeled in the presence of the patient ([id number]). --15:45 01/14/21 Sheldon Boland RN 16:30 01/14/21. BP: 114/74. MAP: 87. HR: 76. RR: 18. O2 saturation: 96%. --16:42 01/14/21 [facility] 4 Clinical Report - Nurses [facility] [address] [place] [address] Phone #: ext- [phone] 01/14/2021 13:32 Patient: SURENDRA MOORE Sex: F : 1945 Age: 75Mariaelena Verdin17:00 01/14/21. BP: 122/65. MAP: 84. HR: 77. RR: 20. O2 saturation: 96%. --17:13 01/14/21 [employer] Qranio117:34 01/14/21. BP: 113/68. HR: 80. RR: 19. O2 saturation: 94%. --17:34 01/14/21 Nani Carter RN18:11 01/14/21. BP: 119/71. HR: 80. RR: 17. O2 saturation: 96%. --18:11 01/14/21 Brandicted1Patient ID band checked for patient name and birthdate: patient confirmed. COVID-19 specimen obtainedby RN via nasopharyngeal swab. Labeled in the presence of the patient and sent to lab ([id number]). --18: Sheldon Boland RN18:36 01/14/21. BP: 124/77. HR: 84. RR: 21. O2 saturation: 94%. --18:36 01/14/21 Brandicted119:00 01/14/21. BP: 110/71. MAP: 84. HR: 78. RR: 17. O2 saturation: 93%. --19:12 01/14/21 [facility]: assessed pain level. Position: states comfortable. Proximity of possessions / care items:call light within easy reach. Plug ins: checked status of equipment in use; located all cords, tubes, and linesto prevent fall hazard. Set expectations: advised patient of rounding protocol timing and asked if theyneeded anything else at this time. --19:15 01/14/21 Mary Jane Byrnes R.N.20:06 01/14/21. BP: 110/61. HR: 82. RR: 18. O2 saturation: 93%. --20:07 01/14/21 [facility] patient reports no complaints.RESPIRATORY: No respiratory distress. Patient waiting for admit bed. --21:05 01/14/21 Mary Jane Byrnes R.N.21:49 01/14/21. BP: 109/73. MAP: 85. HR: 82. RR: 17. O2 saturation: 93% on room air. --21:50 01/14/21Mary Jane Byrnes R.N.Rounding: Pain: assessed pain level. Position: states comfortable. Personal care / toileting: denies toiletingneeds. Proximity of possessions / care items: call light within easy reach. Plug ins: assured IV pumpplugged in; checked status of equipment in use; located all cords, tubes, and lines to prevent fall hazard.Set expectations: advised patient of rounding protocol timing and asked if they needed anything else at thistime. --21:50 01/14/21 Mary Jane Byrnes R.N.22:13 01/14/21. BP: 116/76. MAP: 89. HR: 83. RR: 17. O2 saturation: 96% on room air. --22:13 01/14/21Mary Jane Byrnes R.N. 5 Clinical Report - Nurses [facility] [address] [place] [address] Phone #: ext- [phone] 01/14/2021 13:32 Patient: SURENDRA MOORE Sex: F : 1945 Age: 75yThe patient reports no complaints.RESPIRATORY: No respiratory distress.CVS: Normal sinus rhythm noted.SKIN: Skin is warm and dry. Skin color within normal limits. Patient waiting for admit bed. --22: Mary Jane Byrnes R.N.Rounding: Pain: assessed pain level. Position: states comfortable. Personal care / toileting: assisted withtoileting. Proximity of possessions / care items: call light within easy reach. Plug ins: checked status ofequipment in use; located all cords, tubes, and lines to prevent fall hazard. Set expectations: advisedpatient of rounding protocol timing and asked if they needed anything else at this time. --23:08 01/14/21Mary Jane Byrnes R.N.The patient reports no complaints.RESPIRATORY: No respiratory distress.CVS: Normal sinus rhythm noted.SKIN: Skin is warm and dry. Skin color within normal limits. --23:08 01/14/21 Mary Jane Byrnes R.N.23:10 01/14/21. BP: 131/75. MAP: 93. HR: 72. RR: 16. O2 saturation: 97%. Temp: 97.8 F. Pain level now:010. --23:11 01/14/21 Mary Jane Byrnes R.N.00:33 01/15/21. BP: 113/73. MAP: 86. HR: 72. RR: 16. O2 saturation: 96% on room air. Pain level now:0/10. --00:35 01/15/21 Claudine Byrnes R.N.The patient is resting quietly.RESPIRATORY: No respiratory distress. Breath sounds normal.CVS: Normal sinus rhythm noted. Cardiac rhythm: normal sinus rhythm.SKIN: Skin is warm and dry. Skin color within normal limits. --00:35 01/15/21 Mary Jane Byrnes R.N.01:05 01/15/21. BP: 105/67. MAP: 79. HR: 68. RR: 16. O2 saturation: 92% on room air. Pain level now:0/10. --01:05 01/15/21 Mary Jane Byrnes R.N.The patient reports no complaints.GENERAL / NEURO / PSYCH: Denies headache or anxiety.RESPIRATORY: Denies difficulty breathing. No respiratory distress. Breath sounds normal.CVS: Denies chest pain. Normal sinus rhythm noted.GI / : Denies nausea.SKIN: Skin is warm and dry. Skin color within normal limits. --02:02 01/15/21 Mary Jane Byrnes R.N.02:11 01/15/21. BP: 96/65. MAP: 75. HR: 69. RR: 18. O2 saturation: 93% on room air. --02:11 01/15/21Mary Jane Byrnes R.N.Rounding: Pain: assessed pain level. Position: states comfortable. Personal care / toileting: assisted withtoileting. Proximity of possessions / care items: call light within easy reach. Plug ins: checked status ofequipment in use; located all cords, tubes, and lines to prevent fall hazard. Set expectations: advised 6 Clinical Report - Nurses [facility] [address] [place] [address] Phone #: ext- [phone] 01/14/2021 13:32 Patient: SURENDRA MOORE Sex: F : 1945 Age: 75y patient of rounding protocol timing and asked if they needed anything else at t his time. --03:05 01/15/21 Mary Jane Byrnes R.N. GENERAL / NEURO / PSYCH: Denies headache or anxiety. RESPIRATORY: Denies difficulty breathing. No respiratory distress. CVS: Denies chest pain. Normal sinus rhythm noted. Cardiac rhythm: normal sinus rhythm. GI / : Denies nausea. SKIN: Skin is warm and dry. Skin color within normal limits. --03:05 01/15/21 Mary Jane Byrnes R.N. 03:05 01/15/21. BP: 122/79. MAP: 93. HR: 90. RR: 16. O2 saturation: 99% on room air. Pain level now: 0/10. --03:11 01/15/21 Mary Jane Byrnes R.N. Intake Output PO intake: 60 mL (water). Urine output: 400 mL. --03:15 01/15/21 Mary Jane Byrnes R.N.DISPOSITION / DISCHARGE Report was given to a nurse via a phone call. Report included information regarding patient's treatment and allergies and current vital signs. Report included treatment information regarding medications given or pending. All questions were answered. Report was acknowledged and care was transferred. Bed obtained and ready. --03:16 01/15/21 Rg Dennis RN 03:16 01/15/21. BP: 122/79. MAP: 93. HR: 81. RR: 16. O2 saturation: 94% on room air. Temp: 97.5 F. Pain level now: 0/10. --03:17 01/15/21 Mary Jane Byrnes R.N.Locked/Released at 01/15/2021 03:28 by Mary Jane Byrnes R.N. Name Value Range Interpretation Code Description Data Monie rce(s) Supporting Document(s) ID Date Data Source [id number] 0001 01/14/2021 01:40:00 PM EDT [facility] 1 Clinical Report - Physicians/Mid Levels [facility] [address] [place] [address] Phone #: ext- [phone] 01/14/2021 13:32 Patient: SURENDRA MOORE Sex: F : 1945 Age: 75y Time Seen: 14:11 01/14/2021. Arrived- By private vehicle. Historian- patient. Disposition decision: 15:55 01/14/2021.HISTORY OF PRESENT ILLNESS Chief Complaint: DIZZINESS. This started 3 days and is still present (worse). It was gradual in onset and has been waxing/waning. Described as a sense of rotation and movement. Not described as a sense of falling or confusion. Not described as feeling off balance, light-headed, faint or weak all over. Severity described as mild at its maximum. When seen in the E.D., severity described as severe. Modifying factors- worsened by turning head, standing up and changing position. The patient has had nausea and vomiting. No hearing loss, tinnitus or ear pain. (Dizzy and off balance when she tries to walk. normally walks with walker. No slurred speech or arm/leg weakness. Frontal headache. Was told by neurologist in [place] she had a stroke in 2016, but does not recall any deficits or symptoms). Similar symptoms previously. None. Recent medical care: Not recently seen/assessed.REVIEW OF SYSTEMSThe patient has had a headache and headache, vomiting and dizziness. No double vision or vision,weakness or fainting episodes or episodes. No chest pain, palpitations, numbness, fever or sore throat.No cough, difficulty breathing, abdominal pain, diarrhea or difficulty with urination. No enlarged lymphnodes, fever, photophobia, cough or diabetic symptoms. The patient has had difficulty walking. All othersystems reviewed and are negative.PAST HISTORYSee nurses notes. Hypertension. Has not had a inner ear problem. Has not had GI bleeding. Problems: Hypertension. Dementia. CVA - Cerebrovascular Accident. Parkinson's Disease. Additional Surgeries: C section x3. Cardiac stent. Hysterectomy. L knee replaced. 2 Clinical Report - Physicians/Mid Levels [facility] [address] [place] [address] Phone #: ext- [phone] 01/14/2021 13:32 - Patient: SURENDRA MOORE [facility]#: [id number] Sex: F : 1945 Age: 75y Medications: Vimpat Oral (Tablet 200 mg), 2x a day. Famotidine Oral 20 mg. Vitamin c Oral. Vitamin B-1 Oral. Pantoprazole Sodium Oral (Packet 40 mg). Metoprolol Tartrate Oral (Tablet 25 mg) (3 tabs twice per day). Gabapentin Oral (Tablet 600 mg). Eliquis Oral (Tablet 5 mg). Carbidopa-Levodopa Oral 25/100 mg (1.5 tabs three times per day). Atorvastatin Calcium Oral 40 mg. Aspirin Oral (Tablet Chewable 81 mg). Allergies: Penicillins.SOCIAL HISTORYNever smoker. No alcohol use.FAMILY HISTORYNo significant family medical history.ADDITIONAL NOTESThe nursing notes have been reviewed.PHYSICAL EXAMVital Signs: 01/14/2021 13:37 BP: 149/86. MAP: 107. HR: 80. RR: 17. O2 saturation: 95% on room air.Temp: 97.8 F. Pain level now: 6/10.Appearance: Alert. (symptomatic with movement.).Eyes: Pupils equal, round and reactive to light. Extraocular movements normal. Nystagmus.ENT: Normal ENT inspection. Moist mucous membranes. Pharynx normal.Neck: Normal inspection. Neck supple. No carotid bruit.CVS: Normal heart rate. Heart sounds normal.Respiratory: No respiratory distress.Abdomen: Soft and nontender.Back: Normal inspection. (mild kyphosis).Skin: Normal skin color. No rash. Normal skin turgor.Extremities: Extremities exhibit normal ROM. No lower extremity edema.Neuro: Alert. Oriented X 3. Mood/affect normal. Speech normal. Cranial nerves normal (as tested).No abn ormal finger-nose test. No motor deficit. No sensory deficit.LABS, X-RAYS, AND EKGEKG: EKG time: 13:38 01/14/2021. Rate: 70. Normal CHANDU. Normal QRS complex. Normal axis.Normal ST and T waves and QT. The study has been interpreted contemporaneously by me.Interpretation time: 13:40 01/14/2021. 3 Clinical Report - Physicians/Mid Levels [facility] [address] [place] [address] Phone #: [phone]- [phone] 01/14/2021 13:32 Patient: SURENDRA MOORE Sex: F : 1945 Age: 75yLaboratory Tests:COVID-19 CAH: (JACE: 01/14/2021 18:22) ( MsgRcvd 01/14/2021 18:47) Final results Test Result Flag Units (Reference) COVID-19 NOT DETECTED COVID-19 REENTER NOT DETECTED PROCEDURAL CONTROL VALID KIT LOT # _[id number] 01/14/21.MRW. . . KIT EXP DATE _05.14.21 01/14/21.MRW. . . NORMAL RANGE IS NOT DETECTEDThe COVID-19 assayis a rapid molecular in vitro diagnostic testutilizing an isothermal nucleic acid amplification technology forthequalitative detection of nucleic acid from the SARS-CoV-2 viral RNA in directnasal or nasopharyngeal swabs.Testing should be performed within the first 7days of the onset of symptoms.NEGATIVE RESULTS SHOULD BE TREATEDAS PRESUMPTIVE AND, IF INCONSISTENT WITHCLINICAL SIGNS AND SYMPTOMS OR NECESSARY FOR PATIENT MANAGEMENT, SHOULDBETESTED WITH DIFFERENT AUTHORIZED OR CLEARED MOLECULAR TESTS. NEGATIVE RESULTSDO NOT PRECLUDE [id number] AND SHOULD NOT BE USED THE SOLE BASISFOR PATIENT MANAGEMENT DECISIONS.UA REFLEX TO UA CULTURE: (JACE: 01/14/2021 15:20) ( MsgRcvd 01/14/2021 15:33) Final results Test Result Flag Units (Reference) UA REFLEX TO UA CULTURE URINALYSIS SOURCE R COLOR yellow (NORMAL: Yello CLARITY clear (NORMAL: Clear SPEC GRAVITY 1.020 (1.001 - 1.030 pH 5 (5 - 9) GLUCOSE NORM (NORMAL: Negat BILIRUBIN NEG (NORMAL: Negat KETONE 5 A (NORMAL: Negat PROTEIN NEG (NORMAL: Negat NITRITE NEG (NORMAL: Negat BLOOD NEG (NORMAL: Negat LEUK EST NEG (NORMAL: Negat UROBILINOGEN NOR (less than 1.0 MICROSCOPIC Not IndicateCBC w Diff: (JACE: 01/14/2021 14:29) ( MsgRcvd 01/14/2021 14:51) Final results Test Result Flag Units (Reference) CBC W/AUTOMATED DIFF COMPLETE BLOOD COUNT WBC 6.0 10/uL (4.2 - 11.0) RBC 4.63 10/uL (4.20 - 5.40) HEMOGLOBIN 15.2 g/dL (12.0 - 16.0) HEMATOCRIT 44.5 % (37.0 - 47.0) MCV 96.1 fL (81.0 - 101) MCH 32.8 pg (27.0 - 34.0) MCHC 34.2 g/dL (31.0 - 36.0) RDW 12.4 % (11.5 - 14.5) PLATELETS 153 10/uL (150 - 450) MPV 11.6 H fL (7.4 - 10.4) NEUT 78.9 % (37.0 - 80.0) LYMPH 13.8 L % (25.0 - 40.0) MONO 5.4 % (3.0 - 8.0) EOS 1.3 % (0.0 - 7.0) BASO 0.3 % (0.0 - 2.5) %IG 0.3 H % (0.0 - 0.0) %NRBC 0.0 % (0.0 - 0.0) 4 Clinical Report - Physicians/Mid Levels [facility] [address] [place] [address] Phone #: ext- [phone] 01/14/2021 13:32 [id number] Sex: [facility] : 1945 Age: 75y #NEUT 4.70 10/uL (2.00 - 6.90) #LYMPH 0.82 10/uL (0.60 - 3.40) #MONO 0.32 10/uL (0.00 - 0.90) #EOS 0.08 10/uL (0.00 - 0.70) #BASO 0.02 10/uL (0.00 - 0.20) #IG 0.02 10/uL (0.00 - 0.10) #NRBC 0.00 10/uL (0.00 - 0.00) MANUAL DIFF NOT INDICATED RBC MORPH NOT INDICATEDCMP: (JACE: 01/14/2021 14:29) ( MsgRcvd 01/14/2021 15:13) Final results Test Result Flag Units (Reference) COMPREHENSIVE METABOLIC PANEL COMPREHENSIVE METABOLIC PANEL SODIUM 138 mEq/L (134 - 153) POTASSIUM 4.6 mEq/L (3.6 - 5.0) CHLORIDE 103 mEq/L (98 - 107) CO2 23 MEQ/L (22 - 30) GLUCOSE 115 H MG/DL (70 - 99) BUN 21 MG/DL (7 - 21) CREATININE 0.9 MG/DL (0.7 - 1.5) BUN/CREAT 23 (8 - 27) TOTAL PROTEIN 6.8 G/DL (6.3 - 8.2) ALBUMIN 4.3 G/DL (3.9 - 5.0) GLOBULIN 2.5 GM/DL (2.4 - 3.2) A/G RATIO 1.7 (0.8 - 2.0) CALCIUM 9.6 MG/DL (8.4 - 10.2) TOTAL BILI <0.7 MG/DL (0.2 - 1.3) ALKALINE PHOS 97 U/L (38 - 126) SGOT/AST 14 U/L (5 - 40) SGPT/ALT <5 L U/L (7 - 56) ANION GAP 12.0 mmol/L (8.0 - 16.0) AGE 75 yrs NON-AA GFR >60 mL/min AFR AMER GFR >60 Male GFR Interprentation 20-49 yrs >60 mL/min Alrtnk52-89 yrs >56 mL/min Normal 60-69 yrs >49 mL/min Normal 70-79yrs>42 mL/min Normal 80 and above >35 mL/min Normal Female GFRInterpretation 20-39 yrs >60 mL/min Normal 40-49 yrs >58 mL/minNormal 50-59 yrs >51 mL/min Normal 60-69 yrs >45 mL/min Jnimge13- 79 yrs >39 mL/min Normal 80 and above >32 mL/min NormalEKG: (JACE: 01/14/2021 14:19) ( MsgRcvd 01/14/2021 22:25) Final results Test Result Flag Units (Reference) [place] [address] -- -- RESPIRATORY CARE REPORT -- ---------NAME------- NUMBER SEX AGE ADMIT DISC. XRAY# F/C TYPE OSCAR AGOSTO [id number] F 75 01/14/21651228 MB4 E/R DATE OF : 1945 M/R# [id number] PH#: [phone] TR-06 LOCATION: EMERGENCY DEPT EKG [id number] COMPLETE:01/14/21 15:08 CLC [id number] 5 Clinical Report - Physicians/Mid Levels [facility] [address] [place] [address] Phone #: ext- [phone] 01/14/2021 13:32 Patient: SURENDRA MOORE Sex: F : 1945 Age: 75y PHYSICIAN: NIR GARLAND CCT Head W/O Cont: (JACE: 01/14/2021 14:19) ( MsgRcvd 01/14/2021 17:43) In Progress Exam CT HEAD W/[place] [address] PHONE: [phone] FAX: [phone] Name .................. : OSCAR AGOSTO Acct Number.................. : [id number] ROOM. ................. : [facility] MR Number ................... : [id number] Stay type ............. : E/R Discharge Date......... ... : Admit Date ......... : 01/14/21 Admit Phys .................... : NIR Brown Date of ....... : 1945 Family Phys ................... : NO PCP Phone .................. : 315/000/0000 Age ................................ : 75 Film# .................. .:[id number] Sex ................................. : F Unsigned transcriptions are preliminary reports and do not represent a medical or legal document CT HEAD W/O CONTRAST [id number] COMPLETE: 14:19 16836 Reason(s): Dizziness CT BRAIN WITHOUT IV CONTRAST INDICATION: Dizziness COMPARISON: None CONTRAST: None One or more of the following dose reduction techniques were utilized in effectively lowering the radiation dose for this examination: Automated Exposure Control, Adjustment of the mA and/or kV according to patient size, or Iterative Reconstruction. FINDINGS: Ventricles and sulci probably prominent. Mild periventricular hypodensities. No extra-axial collection or intracranial hemorrhage. No ind ication of acute or prior ischemic CVA. No mass or mass effect. Calvarium and skull base are within normal limits. To the extent included sinuses are clear. Normal mastoid aeration. IACs appear grossly symmetric. IMPRESSION: Mild age compatible atrophy and chronic ischemic small vessel changes. No acute intracranial abnormality or specific etiology for dizziness is identified. Electronically Reviewed and Signed By DCTNAME , SIGNDATE, SCB Transcribe Initials: CHAR , Transcribe Date: 01/14/21 17:08, Dictation Date: Page 1of 2 6 Clinical Report - Physicians/Mid Levels [facility] [address] [place] [address] Phone #: ext- [phone] 01/14/2021 13:32 Patient: SURENDRA MOORE Sex: F : 1945 Age: 75[place] [address] PHONE: [phone] FAX: [phone] Name .................. : OSCAR AGOSTO Acct Number.................. : [id number] ROOM. ................. : VT-10 MR Number ................... : [id number] Stay type ............. : E/R Discharge Date......... ... : Admit Date ......... : 01/14/21 Admit Phys .................... : NIR Brown Date of ....... : 1945 Family Phys ................... : NO PCP Phone .................. : 315/000/0000 Age ................................ : 75 Film# .................. .:[id number] Sex ................................. : F Unsigned transcriptions are preliminary reports and do not represent a medical or legal document CT HEAD W/O CONTRAST [id number] COMPLETE:01/14/21 14:19 [id number] Reason(s): Dizziness <<REPDIST>> Page 2 of 2.PROGRESS AND PROCEDURESCourse of Care: 14:25 01/14/21. The patient states the spinning sensation is worse with movement.However the vertiginous symptoms are occurring in different directions, vertical and horizontal. 14:27 01/14/21. vertiginous symptoms are reproducible with sitting upright. no focal neurologic deficits 15:50 01/14/21. Case discussed with Dr. Jimenez, neurologist. Patient/family counseled. Old medical records ordered. Disposition: Observation in the Acute Inpatient Unit, Monitored.CLINICAL IMPRESSION Nontraumatic cerebrovascular accident- cerebellar hemorrhage involving an unknown intracranial artery. Acute bilateral vestibular neuronitis.(Electronically signed by Dada Loyola 01/16/2021 07:25) 7Clinical Report - Physicians/Mid Levels [facility] [address] [place] [address] Phone #: [phone] 01/14/2021 13:32 Patient: SURENDRA MOORE Sex: F : 1945 Age: 75y Name Value Range Interpretation Code Description Data Monie rce(s) Supporting Document(s) ID Date Data Source [id number] 01/15/2021 05:29:00 [place] [address] PHONE: [phone] FAX: [phone] Name .................. : OSCAR AGOSTO Acct Number.................. : [id number] ROOM. ................. : 106-1 MR Number ................... : [id number] Stay type ............. : O/P Discharge Date......... ... : Admit Date ......... : 01/14/21 Admit Phys .................... : BOO J Date of ....... : 1945 Family Phys ................... : NO PCP Phone .................. : [phone] Age ................................ : 75 Film# .................. .:[id number] Sex ................................. : F Unsigned transcriptions are preliminary reports and do not represent a medical or legal document MRA HEAD W/O CONTRAST [id number] COMPLETE:01/15/21 15:06 NATALIE [id number] Reason for Exam: VERTIGO MR ANGIOGRAM HEAD WITHOUT CONTRAST INDICATION: Vertigo COMPARISON: None CONTRAST: None TECHNIQUE: MR angiogram of the head was performed without intravenous contrast utilizing 3-D time of flight technique. FINDINGS: ICAs: The intracranial portions of the ICAs are patent. There is no hemodynamically significant stenosis or occlusion. ANTERIOR CIRCULATION: The proximal anterior cerebral arteries are patent. Anterior communicating artery is patent. There is no significant central stenosis or occlusion. MIDDLE CIRCULATION: The proximal middle cerebral artery and branches are patent. There is no significant central stenosis or occlusion. POSTERIOR CIRCULATION: The left vertebral artery is patent and dominant. There is a very thin threadlike right vertebral artery. This is thin over the entire visualized segment. No tapering seen to suggest dissection. This is probably a congenital variant. Posterior communicating artery is patent. Basilar artery is patent. The proximal posterior cerebral arteries are patent. There is no significant central stenosis or occlusion. OTHER FINDINGS: No cerebral aneurysm or vascular malformation is seen. IMPRESSION: Dominant left vertebral with thin threadlike right vertebral artery. The examination is otherwise unremarkable. Page 1 of 2 [place] [address] PHONE: [phone] FAX: [phone] Name .................. : [id number] ROOM. ................. : 106-1 MR Number ................... : [id number] Stay type ............. : O/P Discharge Date......... ... : Admit Date ......... : 01/14/21 Admit Phys .................... : BOO Veronica Date of ....... : 1945 Family Phys ................... : NO PCP Phone .................. : [phone] Age ................................ : 75 Film# .................. .:[id number] Sex ................................. : F Unsigned transcriptions are preliminary reports and do not represent a medical or legal document MRA HEAD W/O CONTRAST [id number] COMPLETE:01/15/21 15:06 [facility] [address] Reason for Exam: VERTIGO Electronically Reviewed and Signed By Yovani Pike MD , 01/15/21 17:29, JUAN Transcribe Initials: DZ , Transcribe Date: 01/15/21 17:12, Dictation Date: Copy for: BOO [place] Copy for: JUAN JOSE DINERO via modem Copy for: EMERGENCY DEPT via modem Copy for: 710 MED REC Page 2 of 2 Name Value Range Interpretation Code Description Data Monie rce(s) Supporting Document(s) ID Date Data Source [id number] 01/18/2021 06:21:00 AM EDT [facility] Name Value Range Interpretation Code Description Data Monie rce(s) Supporting Document(s) Lacosamide [Mass/volume] in Serum or Plasma 23.3 ug/mL 5.0-10.0 H [facility] This test was developed and its performa nce characteristicsdetermined by [facility]. It has not been cleared or approvedby the Food and Drug Administration. Limit of Detection 0.5 Mean plasma concentrations following maintenance dose 200 mg/day 4.99 +/- 2.51 ug/mL 400 mg/day 9.35 +/- 4.22 ug/mL 600 mg/day 12.46 +/- 5.60 ug/mL ID Date Data Source [id number] 01/15/2021 06:22:00 AM EDT [facility] Name Value Range Interpretation Code Description Data Monie rce(s) Supporting Document(s) BASIC METABOLIC PANEL [facility] BASIC METABOLIC PANEL Sodium [Moles/volume] in Serum or Plasma 142 mEq/L 134 - 153 [facility] Potassium [Moles/volume] in Serum or Plasma 3.9 mEq/L 3.6 - 5.0 [facility] Chloride [Moles/volume] in Serum or Plasma 105 mEq/L 98 - 107 [facility] Carbon dioxide, total [Moles/volume] in Serum or Plasma 20 MEQ/L 22 - 30 L [facility] Glucose [Mass/volume] in Serum or Plasma 107 MG/DL 70 - 99 H [facility] BUN 18 MG/DL 7 - 21 [facility] al Creatinine [Mass/volume] in Serum or Plasma 0.9 MG/DL 0.7 - 1.5 [facility] BUN/CREAT 20 8 - 27 [facility] Calcium [Mass/volume] in Serum or Plasma 9.5 MG/DL 8.4 - 10.2 [facility] Anion gap 3 in Serum or Plasma 17.0 mmol/L 8.0 - 16.0 H [facility] AGE 75 yrs [facility] al AFR AMER GFR >60 [facility] NON-AA GFR >60 mL/min [facility] ital Male GFR Inter prentation 20-49 yrs >60 mL/min Normal 50-59 yrs >56 mL/min Normal 60-69 yrs >49 mL/min Normal 70-79yrs >42 mL/min Normal 80 and above >35 mL/min Normal Female GFR Interpretation 20-39 yrs >60 mL/min Normal 40-49 yrs >58 mL/min Normal 50-59 yrs >51 mL/min Normal 60-69 yrs >45 mL/min Normal 70-79 yrs >39 mL/min Normal 80 and above >32 mL/min Normal ID Date Data Source [id number] 01/15/2021 06:22:00 AM EDT [facility] Name Value Range Interpretation Code Description Data Monie rce(s) Supporting Document(s) CVE PANEL [facility] al LIPID PANEL Cholesterol [Mass/volume] in Serum or Plasma 149 MG/DL 131 - 200 [facility] Deprecated Triglyceride [Mass/volume] in Serum or Plasma 90 MG/DL 3 5 - 160 [facility] HDL 56 MG/DL 29 - 86 [facility] Cholesterol in LDL [Mass/volume] in Serum or Plasma by Direc t assay 85 mg/dL 65 - 175 [facility] Cholesterol.total/Cholesterol in HDL [Mass Ratio] in Serum o r Plasma 2.7 3.2 - 4.4 L [facility] LDL/HDL 1.52 1.47 - 3.22 [facility] ital CVE RISK CHOL/HDL LDL/HDLMEN: 1/2 AVERAGE 3.43 1.00 AVERAGE 4.97 3.55 2X AVERAGE 9.55 6.25 3X AVERAGE 23.99 7.99WOMEN: 1/2 AVERAGE 3.27 1.47 AVERAGE 4.44 3.22 2X AVERAGE 7.05 5.03 3X AVERAGE 11.04 6.14 ID Date Data Source [id number] 01/15/2021 06:21:00 AM T [facility] Name Value Range Interpretation Code Description Data Monie rce(s) Supporting Document(s) Hemoglobin A1c/Hemoglobin.total in Blood 4.8 % 4.4 - 6.1 [facility] ID Date Data Source [id number] 01/15/2021 06:20:00 AM EDT [facility] Name Value Range Interpretation Code Description Data Monie rce(s) Supporting Document(s) CBC W/AUTOMATED DIFF [facility] COMPLETE BLOOD COUNT Leukocytes [#/volume] in Blood by Automated count 6.2 10^3/uL 4.2 - 1 1.0 [facility] Erythrocytes [#/volume] in Blood by Automated count 4.55 10^6/uL 4. 20 - 5.40 [facility] Hemoglobin [Mass/volume] in Blood 14.8 g/dL 12.0 - 16.0 [facility] Hematocrit [Volume Fraction] of Blood by Automated count 43.9 % 3 7.0 - 47.0 [facility] Erythrocyte mean corpuscular volume [Entitic volume] by Auto mated count 96.5 fL 81.0 - 101 [facility] Erythrocyte mean corpuscular hemoglobin [Entitic mass] by Automated count 32.5 pg 27.0 - 34.0 [facility] Erythrocyte mean corpuscular hemoglobin concentration [Mass/volume] by Automated count 33.7 g/dL 31.0 - 36.0 [facility] Erythrocyte distribution width [Ratio] by Automated count 12.5 % 11.5 - 14.5 [facility] Platelets [#/volume] in Blood by Automated count 139 10^3/uL 150 - 45 0 L [facility] Platelet mean volume [Entitic volume] in Blood by Automated count 12.3 fL 7.4 - 10.4 H [facility] Neutrophils/100 leukocytes in Blood by Automated count 66.0 % 37. 0 - 80.0 [facility] Lymphocytes/100 leukocytes in Blood by Manual count 22.7 % 25.0 - 40.0 L [facility] Monocytes/100 leukocytes in Blood by Automated count 8.0 % 3.0 - 8.0 [facility] Eosinophils/100 leukocytes in Blood by Automated count 2.4 % 0.0 - 7.0 [facility] Basophils/100 leukocytes in Blood by Automated count 0.6 % 0.0 - 2.5 [facility] %IG 0.3 % 0.0 - 0.0 H [facility] %NRBC 0.0 % 0.0 - 0.0 [facility] al Neutrophils [#/volume] in Blood by Automated count 4.06 10^3/uL 2.00 - 6.90 [facility] Lymphocytes [#/volume] in Blood by Automated count 1.40 10^3/uL 0.60 - 3.40 [facility] Monocytes [#/volume] in Blood by Automated count 0.49 10^3/uL 0.00 - 0.90 [facility] Eosinophils [#/volume] in Blood by Automated count 0.15 10^3/uL 0.00 - 0.70 [facility] Basophils [#/volume] in Blood by Automated count 0.04 10^3/uL 0.00 - 0.20 [facility] #IG 0.02 10^3/uL 0.00 - 0.10 [facility] #NRBC 0.00 10^3/uL 0.00 - 0.00 [facility] MANUAL DIFF NOT INDICATED [facility] RBC MORPH NOT INDICATED [facility] spital ID Date Data Source [id number] 01/14/2021 10:25:00 PM EDT [facility] [address] [place] [address] RESPIRATORY CARE REPORT ==== ---------NAME------- NUMBER SEX AGE ADMIT DISC. XRAY# F/C TYPELUCAS SURENDRA [id number] F 75 01/14/21 [id number] MB4 E/R DATE OF : 1945 M/R# [id number] #: [id number] TR-06 LOCATION: EMERGENCY DEPT EKG [id number] COMP LETE:01/14/21 15:08 CLC [id number] PHYSICIAN: NIR Brown Name Value Range Interpretation Code Description Data Monie rce(s) Supporting Document(s) ID Date Data Source [id number] 01/14/2021 06:22:00 PM EDT [facility] Name Value Range Interpretation Code Description Data Monie rce(s) Supporting Document(s) COVID19 Case rprt NOT DETECTED [facility] This lab was ordered by [facility] and reported by [facility]. ID Date Data Source [id number] 01/14/2021 06:47:00 PM EDT [facility] NOT DETECTEDNOT DETECTED PROCE DURAL CONTROL VALID KIT LOT # _[id number] 09.MRW. . . KIT EXP DATE _05.14.21 01/14/21.MRW. . . NORMAL RANGE IS NOT DETECTEDThe COVID-19 assay is a rapid molecular in vitro diagnostic testutilizing an isothermal nucleic acid amplification technology for thequalitative detection of nucleic acid from the SARS-CoV-2 viral RNA in directnasal or nasopharyngeal swabs. Testing should be performed within the first 7days of the onset of symptoms.NEGATIVE RESULTS SHOULD BE TREATED PRESUMPTIVE AND, IF INCONSISTENT WITHCLINICAL SIGNS AND SYMPTOMS OR NECESSARY FOR PATIENT MANAGEMENT, SHOULD BETESTED WITH DIFFERENT AUTHORIZED OR CLEARED MOLECULAR TESTS. NEGATIVE RESULTSDO NOT PRECLUDE SARS-CoV-2 INFECTION AND SHOULD NOT BE USED THE SOLE BASISFOR PATIENT MANAGEMENT DECISIONS. Name Value Range Interpretation Code Description Data Monie rce(s) Supporting Document(s) ID Date Data Source [id number] 01/14/2021 03:32:00 PM EDT [facility] Name Value Range Interpretation Code Description Data [facility] rce(s) Supporting Document(s) UA REFLEX TO UA CULTURE [facility] URINALYSIS SOURCE R [facility] COL[facility] yellow NORMAL: Yellow [facility] ospital CLARITY clear NORMAL: Clear [facility] Specific gravity of Urine by Test strip 1.020 1.001 - 1.030 [facility] pH 5 5 - 9 [facility] Glucose [Mass/volume] in Urine by Test strip NORM NORMAL: Negat [facility] Bilirubin.total [Presence] in Urine by Test strip NEG NORMAL: Negative [facility] Ketones [Presence] in Urine by Test strip 5 NORMAL: Negative A [facility] Protein [Mass/volume] in Urine by Test strip NEG NORMAL: Negat [facility] Nitrite [Presence] in Urine by Test strip NEG NORMAL: Negative [facility] BLOOD NEG NORMAL: Negative [facility] Leukocyte esterase [Presence] in Urine by Test strip NEG JUVENAL L: Negative [facility] Urobilinogen [Mass/volume] in Urine by Test strip NOR less lora n 1.0 mg/dL [facility] MICROSCOPIC Not Indicate [facility] ID Date Data Source [id number] 01/15/2021 05:46:00 AM EDT [facility] Name Value Range Interpretation Code Description Data Monie rce(s) Supporting Document(s) TROPONIN T <0.01 NG/ML 0.00 - 0.10 [facility] ospital TROPONIN T0.1 ng/ml Recommended as the c linical threshold value forTroponin T. ID Date Data Source [id number] 01/15/2021 05:33:00 AM EDT [facility] Name Value Range Interpretation Code Description Data Monie rce(s) Supporting Document(s) Thyroxine (T4) [Mass/volume] in Serum or Plasma 7.1 UG/DL 4.5 - 12.5 [facility] ID Date Data Source [id number] 01/15/2021 05:33:00 AM EDT [facility] Name Value Range Interpretation Code Description Data Monie rce(s) Supporting Document(s) Thyrotropin [Units/volume] in Serum or Plasma by Detec tion limit <= 0.05 mIU/L 1.44 uIU/mL 0.47 - 5.01 [facility] ID Date Data Source [id number] 01/14/2021 03:12:00 PM EDT [facility] Name Value Range Interpretation Code Description Data Monie rce(s) Supporting Document(s) COMPREHENSIVE METABOLIC PANEL [facility] COMPREHENSIVE METABOLIC PANEL Sodium [Moles/volume] in Serum or Plasma 138 mEq/L 134 - 153 [facility] Potassium [Moles/volume] in Serum or Plasma 4.6 mEq/L 3.6 - 5.0 [facility] Chloride [Moles/volume] in Serum or Plasma 103 mEq/L 98 - 107 [facility] Carbon dioxide, total [Moles/volume] in Serum or Plasma 23 MEQ/L 22 - 30 [facility] Glucose [Mass/volume] in Serum or Plasma 115 MG/DL 70 - 99 H [facility] BUN 21 MG/DL 7 - 21 [facility] Creatinine [Mass/volume] in Serum or Plasma 0.9 MG/DL 0.7 - 1.5 [facility] BUN/CREAT 23 8 - 27 [facility] Protein [Mass/volume] in Serum or Plasma 6.8 G/DL 6.3 - 8.2 [facility] Albumin [Mass/volume] in Serum or Plasma 4.3 G/DL 3.9 - 5.0 [facility] Globulin [Mass/volume] in Serum by calculation 2.5 GM/DL 2.4 - 3.2 [facility] A/G RATIO 1.7 0.8 - 2.0 [facility] Calcium [Mass/volume] in Serum or Plasma 9.6 MG/DL 8.4 - 10.2 [facility] Bilirubin.total [Mass/volume] in Serum or Plasma <0.7 MG/DL 0.2 - 1.3 [facility] Alkaline phosphatase [Enzymatic activity/volume] in Serum or Plasma 97 U/L 38 - 126 [facility] Aspartate aminotransferase [Enzymatic activity/volume] in Serum or Plasma 14 U/L 5 - 40 [facility] Alanine aminotransferase [Enzymatic activity/volume] in Seru m or Plasma <5 U/L 7 - 56 L [facility] Anion gap 3 in Serum or Plasma 12.0 mmol/L 8.0 - 16.0 [facility] AGE 75 yrs [facility] NON-[facility] GFR >60 mL/min [facility] ital AFR AMER GFR >60 [facility] Male GFR In terprentation 20-49 yrs >60 mL/min Normal 50-59 yrs >56 mL/min Normal 60-69 yrs >49 mL/min Normal 70-79yrs >42 mL/min Normal 80 and above >35 mL/min Normal Female GFR Interpretation 20-39 yrs >60 mL/min Normal 40-49 yrs >58 mL/min Normal 50-59 yrs >51 mL/min Normal 60-69 yrs >45 mL/min Normal 70-79 yrs >39 mL/min Normal 80 and above >32 mL/min Normal ID Date Data Source [id number] 01/14/2021 02:51:00 PM EDT [facility] Name Value Range Interpretation Code Description Data Monie rce(s) Supporting Document(s) CBC W/AUTOMATED DIFF [facility] COMPLETE BLOOD COUNT Leukocytes [#/volume] in Blood by Automated count 6.0 10^3/uL 4.2 - 1 1.0 [facility] Erythrocytes [#/volume] in Blood by Automated count 4.63 10^6/uL 4. 20 - 5.40 [facility] Hemoglobin [Mass/volume] in Blood 15.2 g/dL 12.0 - 16.0 [facility] Hematocrit [Volume Fraction] of Blood by Automated count 44.5 % 3 7.0 - 47.0 [facility] Erythrocyte mean corpuscular volume [Entitic volume] by Auto mated count 96.1 fL 81.0 - 101 [facility] Erythrocyte mean corpuscular hemoglobin [Entitic mass] by Automated count 32.8 pg 27.0 - 34.0 [facility] Erythrocyte mean corpuscular hemoglobin concentration [Mass/volume] by Automated count 34.2 g/dL 31.0 - 36.0 [facility] Erythrocyte distribution width [Ratio] by Automated count 12.4 % 11.5 - 14.5 [facility] Platelets [#/volume] in Blood by Automated count 153 10^3/uL 150 - 45 0 [facility] Platelet mean volume [Entitic volume] in Blood by Automated count 11.6 fL 7.4 - 10.4 H [facility] Neutrophils/100 leukocytes in Blood by Automated count 78.9 % 37. 0 - 80.0 [facility] Lymphocytes/100 leukocytes in Blood by Manual count 13.8 % 25.0 - 40.0 L [facility] Monocytes/100 leukocytes in Blood by Automated count 5.4 % 3.0 - 8.0 [facility] Eosinophils/100 leukocytes in Blood by Automated count 1.3 % 0.0 - 7.0 [facility] Basophils/100 leukocytes in Blood by Automated count 0.3 % 0.0 - 2.5 [facility] %IG 0.3 % 0.0 - 0.0 H [facility] %NRBC 0.0 % 0.0 - 0.0 [facility] al Neutrophils [#/volume] in Blood by Automated count 4.70 10^3/uL 2.00 - 6.90 [facility] Lymphocytes [#/volume] in Blood by Automated count 0.82 10^3/uL 0.60 - 3.40 [facility] Monocytes [#/volume] in Blood by Automated count 0.32 10^3/uL 0.00 - 0.90 [facility] Eosinophils [#/volume] in Blood by Automated count 0.08 10^3/uL 0.00 - 0.70 [facility] Basophils [#/volume] in Blood by Automated count 0.02 10^3/uL 0.00 - 0.20 [facility] #IG 0.02 10^3/uL 0.00 - 0.10 [facility] ospital #NRBC 0.00 10^3/uL 0.00 - 0.00 [facility] MANUAL DIFF NOT INDICATED [facility] RBC MORPH NOT INDICATED [facility] sp[facility] ID Date Data Source RENAL PROFILE 05/31/2020 12:00:00 AM EST eCW1 ([facility]) Name Value Range Interpretation Code Description Data Monie rce(s) Supporting Document(s) 98 70-100 GLUCOSE, FASTING eCW1 ([facility]) 14 7-18 BLOOD UREA NITROGEN eCW1 ([facility] hospital) 0.88 0.55-1.30 CREATININE FOR GFR eCW1 ([facility]) > 60.0 >39 GLOMERULAR FILTRATION RATE eCW 1 ([facility]) 145 136-145 SODIUM LEVEL eCW1 ([facility]) 3.6 3.5-5.1 POTASSIUM SERUM eCW1 ([facility]) 110 98-107 CHLORIDE LEVEL eCW1 ([facility]) 27 21-32 CARBON DIOXIDE LEVEL eCW1 ([facility]) 8.7 8.8-10.2 CALCIUM LEVEL eCW1 ([facility]) 3.3 2.5-4.9 PHOSPHORUS LEVEL eCW1 ([facility]) 3.5 3.2-5.2 ALBUMIN eCW1 ([facility]) Procedure Social History Code Duration Value Status Description Data Source(s ) Alcohol intake 11/04/2020 12:00:00 AM EDT Ex-drinker (finding) comp leted Ex- drinker (finding) [facility] Smoking 10/30/2020 12:00:00 AM EDT Never Smoker completed Never S moker eCW1 ([facility]) Smoking 10/30/2020 12:00:00 AM EDT Never Smoker completed Never S moker eCW1 ([facility]) Smoking 10/30/2020 12:00:00 AM EDT Never Smoker completed Never S moker eCW1 ([facility]) Smoking 10/30/2020 12:00:00 AM EDT Never Smoker completed Never S moker eCW1 ([facility]) Smoking 10/30/2020 12:00:00 AM EDT Never Smoker completed Never S moker eCW1 ([facility]) Smoking 10/30/2020 12:00:00 AM EDT Never Smoker completed Never S moker eCW1 ([facility]) Smoking 10/30/2020 12:00:00 AM EDT Never Smoker completed Never S moker eCW1 ([facility]) Smoking 10/30/2020 12:00:00 AM EDT Never Smoker completed Never S moker eCW1 ([facility]) Smoking 05/29/2020 12:00:00 AM EST Never Smoker completed Never S moker eCW1 ([facility]) Smoking 05/29/2020 12:00:00 AM EST Never Smoker completed Never S moker eCW1 ([facility]) Smoking 05/29/2020 12:00:00 AM EST Never Smoker completed Never S moker eCW1 ([facility]) Smoking 05/29/2020 12:00:00 AM EST Never Smoker completed Never S moker eCW1 ([facility]) Smoking 05/29/2020 12:00:00 AM EST Never Smoker completed Never S moker eCW1 ([facility]) Smoking 05/29/2020 12:00:00 AM EST Never Smoker completed Never S moker eCW1 ([facility]) Smoking 05/29/2020 12:00:00 AM EST Never Smoker completed Never S moker eCW1 ([facility]) Tobacco use and exposure 05/09/2020 12:00:00 AM EST Never used co mpleted Never used [facility] Smoking 05/09/2020 12:00:00 AM EST Former smoker completed Former smoker [facility] Alcohol intake 05/09/2020 12:00:00 AM EST Not Currently completed [facility] Smoking 05/09/2020 12:00:00 AM EST Former smoker completed Former smoker [facility] Smoking 03/05/2020 12:00:00 AM EST Never Smoker completed Never S moker eCW1 ([facility]) Smoking 03/05/2020 12:00:00 AM EST Never Smoker completed Never S moker eCW1 ([facility]) Smoking 03/05/2020 12:00:00 AM EST Never Smoker completed Never S moker eCW1 ([facility]) Vital Signs ID Date Data Source UNK Name Value Range Interpretation Code Description Data Source(s) Systolic blood pressure 134 mm[Hg] 134 mm[Hg] M LV ([facility]) Diastolic blood pressure 82 mm[Hg] 82 mm[Hg] [facility] ([facility]) Body height 57 [in_i] 57 [in_i] [facility] ([facility]) 4'9" Body weight 172.00 [lb_av] 172.00 [facility]_av] [facility] Body mass index (BMI) [Ratio] 37.2 kg/m2 37.2 k g/m2 [facility] ([facility]) [place] body weight 100 [lb_av] 100 [lb_av] [facility] Body weight 78.019 kg 78.019 kg [facility] ([facility]) Body surface area Derived from formula 1.69 m2 1.69 m2 [facility] ([facility]) [place] body weight 100 [lb_av] 100 [lb_av] [facility] Body height 57 [in_i] 57 [in_i] [facility] ([facility]) 4'9" Respiratory rate 12 /min 12 /min [facility] ( [facility]) Body weight 172.00 [lb_av] 172.00 [lb_av] [facility] T ([facility]) Body mass index (BMI) [Ratio] 37.2 kg/m2 37.2 k g/m2 [facility] ([facility]) Systolic blood pressure 106 mm[Hg] 106 mm[Hg] [facility] Diastolic blood pressure 68 mm[Hg] 68 mm[Hg] [facility] Heart rate 73 /min 73 /min [facility] Body height 144.8 cm 144.8 cm [facility] Body weight 77.565 kg 77.565 kg [facility] Body mass index (BMI) [Ratio] 37.00 kg/m2 37.00 kg/m2 [facility] Oxygen saturation in Arterial blood by Pulse oximetry 99 % 99 % [facility] Body weight 171 [lb_av] 171 [lb_av] eCW1 ([facility]) Body height 59 [in_i] 59 [in_i] eCW1 ([facility]ly [facility], later [facility]) Body mass index (BMI) [Ratio] 34.53 kg/m2 34.53 kg/m2 W1 ([facility]) Heart rate 74 /min 74 /min W1 ([facility]) Respiratory rate 18 /min 18 /min W1 ([facility]) Body temperature 96.5 [degF] 96.5 [degF] eCW1 ( [facility]) Systolic blood pressure 121 mm[Hg] 121 mm[Hg] e CW1 ([facility]) Diastolic blood pressure 63 mm[Hg] 63 mm[Hg] eCW1 ([facility]) Diastolic blood pressure 92 mm[Hg] 92 mm[Hg] eCW1 ([facility]) Body weight 161 [lb_av] 161 [lb_av] eCW1 ([facility]) Body height 59 [in_i] 59 [in_i] eCW1 ([facility], [facility]) Body mass index (BMI) [Ratio] 32.51 kg/m2 32.51 kg/m2 W ([facility]) Heart rate 86 /min 86 /min eCW1 ([facility]) Respiratory rate 20 /min 20 /min eCW1 ([facility]) Body temperature 98.7 [degF] 98.7 [degF] eCW1 ( [facility]) Systolic blood pressure 147 mm[Hg] 147 mm[Hg] e CW1 ([facility]) Systolic blood pressure 120 mm[Hg] 120 mm[Hg] [facility] Diastolic blood pressure 70 mm[Hg] 70 mm[Hg] [facility] Heart rate 102 /min 102 /min [facility] Body height 144.8 cm 144.8 cm [facility] Body weight 73.483 kg 73.483 kg [facility] Body mass index (BMI) [Ratio] 35.06 kg/m2 35.06 kg/m2 [facility] Oxygen saturation in Arterial blood by Pulse oximetry 95 % 95 % [facility] Body weight 159.8 [lb_av] 159.8 [lb_av] W1 ([facility]) Body height 59 [in_i] 59 [in_i] W1 ([facility], [facility]) Body mass index (BMI) [Ratio] 32.27 kg/m2 32.27 kg/m2 W1 ([facility]) Heart rate 70 /min 70 /min eCW1 ([facility]) Respiratory rate 20 /min 20 /min eCW1 ([facility]) Body temperature 99.9 [degF] 99.9 [degF] eCW1 ( [facility]) Systolic blood pressure 118 mm[Hg] 118 mm[Hg] e CW1 ([facility]) Diastolic blood pressure 69 mm[Hg] 69 mm[Hg] W1 ([facility]) ID Date Data Source [id number] 01/21/2021 01:02:10 PM EDT [facility] Name Value Range Interpretation Code Description Data Source(s) WEIGHT RECORDED 171.10 pounds 171.10 pounds [facility] Height 59 Inches 059 Inches [facility] WEIGHT RECORDED 166.00 pounds 166.00 pounds [facility] Height 59 Inches 059 Inches [facility] Patient Treatment Plan of Care Planned Activity Planned Date Details Description Data Source (s) apixaban 5 MG Oral Tablet [Eliquis] 11/04/2020 12:00:00 AM EDT [facility] Famotidine 20 MG Oral Tablet 10/30/2020 12:00:00 AM EDT eCW1 ([facility]) Fluticasone Propionate 50 MCG/ACT 10/30/2020 12:00:00 AM EDT eCW1 ([facility]) Famotidine 20 MG Oral Tablet 10/30/2020 12:00:00 AM EDT eCW1 ([facility]) Fluticasone Propionate 50 MCG/ACT 10/30/2020 12:00:00 AM EDT eCW1 ([facility]) Fluticasone Propionate 50 MCG/ACT 10/30/2020 12:00:00 AM EDT eCW1 ([facility]) Famotidine 20 MG Oral Tablet 10/30/2020 12:00:00 AM EDT eCW1 ([facility]) Fluticasone Propionate 50 MCG/ACT 10/30/2020 12:00:00 AM EDT eCW1 ([facility]) Famotidine 20 MG Oral Tablet 10/30/2020 12:00:00 AM EDT eCW1 ([facility]) Fluticasone Propionate 50 MCG/ACT 10/30/2020 12:00:00 AM EDT eCW1 ([facility]) Famotidine 20 MG Oral Tablet 10/30/2020 12:00:00 AM EDT eCW1 ([facility]) Famotidine 20 MG Oral Tablet 10/30/2020 12:00:00 AM EDT eCW1 ([facility]) Fluticasone Propionate 50 MCG/ACT 10/30/2020 12:00:00 AM EDT eCW1 ([facility]) fluticasone (FLONASE) 50 MCG/ACT nasal spray 10/30/2020 12:00:00 AM EDT [facility] Famotidine 20 MG Oral Tablet 10/30/2020 12:00:00 AM EDT eCW1 ([facility]) Fluticasone Propionate 50 MCG/ACT 10/30/2020 12:00:00 AM EDT eCW1 ([facility]) Famotidine 20 MG Oral Tablet 10/30/2020 12:00:00 AM EDT eCW1 ([facility]) Fluticasone Propionate 50 MCG/ACT 10/30/2020 12:00:00 AM EDT eCW1 ([facility]) Clindamycin 150 MG Oral Capsule 05/31/2020 12:00:00 AM EST eCW1 ([facility]) Clindamycin 150 MG Oral Capsule 05/31/2020 12:00:00 AM EST eCW1 ([facility]) Clindamycin 150 MG Oral Capsule 05/31/2020 12:00:00 AM EST eCW1 ([facility]) Clindamycin 150 MG Oral Capsule 05/31/2020 12:00:00 AM EST eCW1 ([facility]) Clindamycin 150 MG Oral Capsule 05/31/2020 12:00:00 AM EST eCW1 ([facility]) Clindamycin 150 MG Oral Capsule 05/31/2020 12:00:00 AM EST eCW1 ([facility]) Clindamycin 150 MG Oral Capsule 05/31/2020 12:00:00 AM EST eCW1 ([facility]) Levetiracetam 500 MG Oral Tablet 04/27/2020 12:00:00 AM EST [facility] gabapentin 600 MG Oral Tablet 04/21/2020 12:00:00 AM EST [facility] Zolpidem tartrate 5 MG Oral Tablet 03/05/2020 12:00:00 AM EST [facility] lacosamide 200 MG Oral Tablet [Vimpat] 03/05/2020 12:00:00 AM EST [facility] duloxetine 60 MG Delayed Release Oral Capsule 03/05/2020 12:00:00 A M EST [facility] pantoprazole 40 MG Delayed Release Oral Tablet 03/05/2020 12:00:00 AM EST [facility] Metoprolol Tartrate 25 MG Oral Tablet 03/05/2020 12:00:00 AM EST [facility] apixaban 5 MG Oral Tablet [Eliquis] 03/05/2020 12:00:00 AM EST [facility] atorvastatin 40 MG Oral Tablet 03/05/2020 12:00:00 AM EST [facility] Aspirin 81 MG Delayed Release Oral Tablet 03/05/2020 12:00:00 AM ES T [facility] Dextromethorphan Hydrobromide 20 MG / Quinidine Sulfate 10 MG Or al Capsule [facility]
[2021-02-04] MEDS ORDERED: fentaNYL 100 MCG/2 ML INJECTION (J3010) As Ordered ONE (11:12)
[2021-02-04] MEDS ORDERED: LIDOCAINE 2% 100MG/5ML SDV (FOR ANES.) As Ordered ONE (11:12)
[2021-02-04] MEDS ORDERED: propofoL 200 MG/20 ML VIAL As Ordered ONE (11:12)
[2021-02-04] MEDS ORDERED: PHENYLephrine 500MCG 5ML (100MCG/ML) SYRINGE As Ordered ONE (11:55)
--- NOTE | 2021-02-04 12:09 | ROOR ---
Patient Name: Estela Schroeder Procedure Date: 02/04/2021 11:38 AM Date of : 1945 Age: 75 Room: [facility] Gender: Female Note Status: Finalized Procedure: Upper GI endoscopy Indications: Dyspepsia, Heartburn Providers: David Choudhury MD Referring MD: Fany Hwang Md Requesting Provider: Medicines: Monitored Anesthesia Care Complications: No immediate complications. Procedure: Pre-Anesthesia Assessment: - Prior to the procedure, a History and Physical was performed, and patient medications and allergies were reviewed. The patient is competent. The risks and benefits of the procedure and the sedation options and risks were discussed with the patient. All questions were answered and informed consent was obtained. Patient identification and proposed procedure were verified by the physician, the nurse and the anesthesiologist in the procedure room. Mental Status Examination: alert and oriented. Airway Examination: normal oropharyngeal airway and neck mobility. Respiratory Examination: clear to auscultation. CV Examination: normal. Prophylactic Antibiotics: The patient does not require prophylactic antibiotics. Prior Anticoagulants: The patient has taken Eliquis (apixaban), last dose was 2 days prior to procedure. ASA Grade Assessment: III - A patient with severe systemic disease. After reviewing the risks and benefits, the patient was deemed in satisfactory condition to undergo the procedure. The anesthesia plan was to use monitored anesthesia care (MAC). Immediately prior to administration of medications, the patient was re-assessed for adequacy to receive sedatives. The heart rate, respiratory rate, oxygen saturations, blood pressure, adequacy of pulmonary ventilation, and response to care were monitored throughout the procedure. The physical status of the patient was re-assessed after the procedure. The Endoscope was introduced through the mouth, and advanced to the second part of duodenum. The upper GI endoscopy was accomplished without difficulty. The patient tolerated the procedure well. Findings: LA Grade A (one or more mucosal breaks less than 5 mm, not extending between tops of 2 mucosal folds) esophagitis with no bleeding was found in the distal esophagus. Biopsies were taken with a cold forceps for histology. Verification of patient identification for the specimen was done by the physician and nurse using the patient's name, date and medical record number. Estimated blood loss was minimal. Scattered mild inflammation characterized by erythema and granularity was found in the gastric antrum. Biopsies were taken with a cold forceps for Helicobacter pylori testing. The duodenal bulb and second portion of the duodenum were normal. Impression: - LA Grade A reflux esophagitis. Rule out Melvin's esophagus. Biopsied. - Gastritis. Biopsied. - Normal duodenal bulb and second portion of the duodenum. Recommendation: - Patient has a contact number available for emergencies. The signs and symptoms of potential delayed complications were discussed with the patient. Return to normal activities tomorrow. Written discharge instructions were provided to the patient. - High fiber diet. - Continue present medications. - Await pathology results. - Resume Eliquis (apixaban) at prior dose today. - Follow an antireflux regimen. - Telephone GI clinic for pathology results in 2 weeks. - Return to primary care physician. Procedure Code(s): --- Professional --- 37636, Esophagogastroduodenoscopy, flexible, transoral; with biopsy, single or multiple Diagnosis Code(s): --- Professional --- K21.0, Gastro-esophageal reflux disease with esophagitis K29.70, Gastritis, unspecified, without bleeding R10.13, Epigastric pain R12, Heartburn CPT copyright 2019 [employer]. All rights reserved. The codes documented in this report are preliminary and upon first aid teacher review may be revised to meet current compliance requirements. David Choudhury MD David Choudhury MD 02/04/2021 12:08:36 PM Electronically signed by David Choudhury MD Number of Addenda: 0 Note Initiated On: 02/04/2021 11:38 AM Estimated Blood Loss: Estimated blood loss was minimal.
[2021-02-04 12:47] VITALS: BP 117/66
== END 2021-02-04 12:40 | disposition home or self-care (01) ==
LOC: M OPP 09:56
PROVIDERS: ATTEND Internal Medicine Gastroenterology
DX: K21.00 Gastro-esophageal reflux disease with esophagitis, without bleeding (principal); K29.70 Gastritis, unspecified, without bleeding; R12 Heartburn; G20 Parkinson's disease; I48.91 Unspecified atrial fibrillation; Z88.0 Allergy status to penicillin; Z88.8 Allergy status to other drugs, medicaments and biological substances; Z95.5 Presence of coronary angioplasty implant and graft; Z86.69 Personal history of other diseases of the nervous system and sense organs
CPT/HCPCS: 43239; 88305; J2370; J3010

== ENCOUNTER → 2022-01-23 | Outpatient (REF) | payer MEDICARE, MEDICAID ==
[~2022-01-23] MED LIST changes: -NS 1,000 ML IV ONE
== END ==
LOC: M SFHCPLAZ 16:55
PROVIDERS: ATTEND Physician Assistant
DX: R30.0 Dysuria (principal)

== ENCOUNTER → 2022-10-16 | Outpatient (REF) | payer MEDICARE, MEDICAID | LOC: M SFHCLERA 11:14 | PROVIDERS: ATTEND Student in an Organized Health Care Education/Training Program | DX: R30.0 Dysuria (principal) ==

== ENCOUNTER → 2023-08-23 | Outpatient (REF) | payer MEDICARE, MEDICAID | LOC: M SFHCDERM 17:28 | PROVIDERS: ATTEND Physician Assistant | DX: D04.62 Carcinoma in situ of skin of left upper limb, including shoulder (principal); L82.1 Other seborrheic keratosis ==

== ENCOUNTER → 2023-10-06 | Outpatient (REF) | payer MEDICARE | LOC: M SFHCLERA 15:27 | PROVIDERS: ATTEND Family Medicine | DX: E66.01 Morbid (severe) obesity due to excess calories (principal); E78.5 Hyperlipidemia, unspecified ==

== ENCOUNTER → 2023-11-22 | Outpatient (REF) | payer MEDICARE | LOC: M LAB REF 16:22 | PROVIDERS: ATTEND Surgery | DX: C44.629 Squamous cell carcinoma of skin of left upper limb, including shoulder (principal) ==

== ENCOUNTER → 2024-02-22 | Outpatient (REF) | payer MEDICARE, MEDICAID ==
[~2024-02-22] MED LIST changes: +GABA-1490 PO; -GABA600T4 PO
== END ==
LOC: M SFHCDERM 17:49
PROVIDERS: ATTEND Physician Assistant
DX: L57.0 Actinic keratosis (principal)

== ENCOUNTER → 2024-05-22 | Outpatient (REF) | payer MEDICARE, MEDICAID | LOC: M SFHCDERM 17:10 | PROVIDERS: ATTEND Physician Assistant | DX: D04.62 Carcinoma in situ of skin of left upper limb, including shoulder (principal) ==